=== PATIENT | female | born 1955 | race Caucasian/White ===

== ENCOUNTER 2022-11-30 08:04 | Outpatient (OUT) | payer MEDICARE, SELFPAY ==
--- NOTE | 2022-11-30 07:54 | CA_ITS ---
Patient: FOSTER MCNEILL Exam Date: 11/30/2022 : 1955 Gender:F Ordering : SHAIKH Eugenie ADAME . Admission #: [id number] Family : Order #: [id number] CLICK HERE TO VIEW EXAM ECHOCARDIOGRAM REPORT PROCEDURE: CA ECHO DOPPLER COMPLETE INDICATIONS: SIMON, hypertension COMPARISON: None. DESCRIPTION: COMPLETE ECHOCARDIOGRAM Real-time transthoracic echocardiography with 2D, M-mode, spectral and color flow Doppler performed. QUALITY: Technical quality was good. LEFT VENTRICLE: Normal chamber size. Normal left ventricular wall thickness. Normal systolic function. LV EF: Normal left ventricular ejection fraction, (55%). DIASTOLIC: Normal diastolic function. ATRIAL SEPTUM: Visually appears intact. LEFT ATRIUM: Normal chamber size. RIGHT ATRIUM: Mild dilatation. RIGHT VENTRICLE: Normal chamber size. Normal right ventricular systolic function. TRICUSPID VALVE: Normal mobility and thickness. No stenosis with mild regurgitation. Doppler studies reveal mildly (35-45) elevated right sided pressures. RVSP 39 mmHg MITRAL VALVE: Normal mobility and thickness. No evidence of mitral valve stenosis. Mild mitral annular calcification. No mitral regurgitation. AORTIC VALVE: Normal trileaflet appearance. No visible sclerosis. Normal leaflet mobility. No evidence of aortic valve stenosis. Mild aortic regurgitation. AORTIC ROOT: The aortic root is mildly to moderately dilated, measuring 4.0 cm. Ascending aorta is normal in size (3.5 cm). PULMONIC VALVE: Normal thickness and mobility. No stenosis. Trivial regurgitation. PERICARDIUM: No evidence of pericardial effusion. IVC: Collapses with inspirations. IVC is mildly dilated (2.2 cm). PLEURA: CONCLUSION: 1. Normal ventricular systolic function. LVEF is 55%. 2. Normal diastolic function. 3. Mild tricuspid and aortic regurgitation. 4. Mildly to moderately dilated aortic root [4.0 cm], the ascending aorta is normal in size. 5. Mildly elevated right-sided pressures. Adult Echocardiography Procedure Report Left Ventricle LVEDD (3.7 - 5.6 cm): 5.06 cm LVESD (2.2 - 4.0 cm): 3.19 cm LVIVS thickness (0.6 - 1.2 cm): 0.91 cm LVPW thickness (0.5 - 1.0 cm): 0.86 cm e': 0.12 m/s E - e': 4.83 LVOT Max Gradient: 4.03 mm[Hg] LVOT Area (cm2): 1.00 m/s Peak Velocity (LVOT): 1.00 m/s LVOT Diameter 2.29 cm Left Atrium LA Volume Index (2D A2C): 24.40 ml/m2 Left Atrium Systolic Dimension: 3.46 cm Mitral Valve MV E to A Ratio: 0.65 Mitral Valve A-Wave Peak Velocity: 0.91 m/s Mitral Valve E-Wave Peak Velocity: 0.60 m/s Right Ventricle Aorta AO Root Diam: 4.04 cm Ascending Ao Diam: 3.47 cm Aortic Valve AoV Area (Peak Elan): 3.13 cm2, 3.13 cm2 Peak Velocity(Antegrade Flow): 1.32 m/s Peak Gradient(Antegrade Flow): 6.99 mm[Hg] Tricuspid Valve Peak Velocity (Regurgitant Flow): 2.80 m/s, 2.30 m/s Pulmonic Valve Peak Velocity: 0.99 m/s Peak Gradient: 4.27 mm[Hg], 3.51 mm[Hg] Right Atrium Right Atrium Systolic Pressure: 52.30 ml, 52.30 ml Dictated by: Rad Mock M.D. on 12/05/2022 at 10:46 Approved by: Rad Mock M.D. on 12/05/2022 at 10:52
== END 2022-11-30 08:05 ==
LOC: CARD 08:05
PROVIDERS: PCP Internal Medicine; Visit Provider Internal Medicine
DX: R06.09 Other forms of dyspnea (principal); I08.2 Rheumatic disorders of both aortic and tricuspid valves
CPT/HCPCS: 93306

== ENCOUNTER 2022-12-08 09:37 | Outpatient (OUT) | payer MEDICARE, SELFPAY ==
[2022-12-08 13:04] LABS: Anion Gap 15.3; BUN Creatinine Ratio 18.9; Calcium 9.1 mg/dL (8.5-10.1); Carbon Dioxide 25.5 mmol/L (21.0-32.0); Chloride 104 mmol/L (98-107); Estimated GFR (African America >60 (>=60); Estimated GFR (Non-African Ame >60 (>=60); Glucose 99 mg/dL (74-106); Potassium 3.8 mmol/L (3.5-5.1); Sodium 141 mmol/L (136-145)
== END 2022-12-08 09:38 ==
LOC: LAB 09:37
PROVIDERS: PCP Internal Medicine; Visit Provider Internal Medicine
DX: R06.09 Other forms of dyspnea (principal)
CPT/HCPCS: 36415; 80048

== ENCOUNTER 2023-10-03 07:13 | Outpatient (OUT) | payer OTHER, SELFPAY ==
[2023-10-03 07:42] LABS: Basophils Absolute Auto 0.1 10^3/uL (0.0-0.1); Basophils Percent Auto 1.1 % (0.2-2.0); Eosinophils Absolute Auto 0.2 10^3/uL (0.0-0.7); Eosinophils Percent Auto 2.4 % (0.9-7.0); Hematocrit 41.5 % (36.0-48.0); Hemoglobin 12.7 g/dL (12.0-16.0); Immature Granulocytes Abs Auto 0.01 10^3/uL (0.00-0.03); Immature Granulocytes Pct Auto 0.2 % (0.0-0.5); Lymphocytes Absolute Auto 2.1 10^3/uL (1.2-3.8); Lymphocytes Percent Auto 33.1 % (20.5-60.0); Mean Corpuscular HGB Conc 30.6 g/dL (29.9-35.2); Mean Corpuscular Hemoglobin 26.3 pg (26.7-34.0); Mean Corpuscular Volume 86.1 fL (81.0-99.0); Mean Platelet Volume 9.8 fL (9.5-13.5); Monocytes Absolute Auto 0.6 10^3/uL (0.3-0.8); Monocytes Percent Auto 10.2 % (1.7-12.0); Neutrophils Absolute Auto 3.3 10^3/uL (1.4-6.5); Platelet Count 231 10^3/uL (150-450); Red Blood Count 4.82 10^6/uL (4.20-5.40); Red Cell Distribution Width 16.1 % (11.0-15.0); White Blood Count 6.2 10^3/uL (4.0-11.0)
[2023-10-03 10:31] LABS: Alanine Aminotransferase 37 U/L (14-59); Albumin Globulin Ratio 1.1; Albumin Level 3.4 g/dL (3.4-5.0); Alkaline Phosphatase 80 U/L (46-116); Anion Gap 14.9; Aspartate Amino Transferase 19 U/L (15-37); Bilirubin Total 0.5 mg/dL (0.2-1.0); Calcium 8.9 mg/dL (8.5-10.1); Carbon Dioxide 26.9 mmol/L (21.0-32.0); Chloride 104 mmol/L (98-107); Chol HDL Ratio 3.8; Cholesterol 171 mg/dL (<=200); Estimated GFR (African America >60 (>=60); Estimated GFR (Non-African Ame >60 (>=60); Globulin 3.2 g/dL; Glucose 91 mg/dL (74-106); HDL Cholesterol 45 mg/dL (40-60); Potassium 3.8 mmol/L (3.5-5.1); Sodium 142 mmol/L (136-145); Total Protein 6.6 g/dL (6.4-8.2); Triglycerides 90 mg/dL (<=150)
[2023-10-03 11:03] LABS: Estimated Average Glucose 120 mg/dL; Glycohemoglobin A1C 5.8 % (4.5-6.2)
== END 2023-10-03 07:14 | disposition home or self-care (01) ==
LOC: LAB 07:13
PROVIDERS: PCP Internal Medicine; Visit Provider Internal Medicine
DX: B02.29 Other postherpetic nervous system involvement (principal); I10 Essential (primary) hypertension; Z13.1 Encounter for screening for diabetes mellitus; Z13.220 Encounter for screening for lipoid disorders
CPT/HCPCS: 36415; 80053; 80061; 83036; 85025

== ENCOUNTER 2023-11-11 11:03 | Outpatient (OUT) | payer OTHER, SELFPAY ==
--- NOTE | 2023-11-11 11:59 | P.CN_ITS ---
Consult Note: HPI Data of Consult Patient: new to practice Consult date: 11/11/23 Requesting Physician: Felix Barros MD Primary Care Provider: Shaikh Graham MD Consult Narrative Reason for consult: radiating midback pain Narrative: 68yof who presents for evaluation. developed shingles several months ago across midback and abdomen and has had significant burning pain since. has tried various medications, including opioids, tylenol, gabapentin, lidocaine patches, all without benefit. denies adverse med side effects. cc:: CC: Felix Barros MD Review of Systems ROS Status of ROS 10 or more systems reviewed and unremark able except as noted in history and below Meds Home Medications and Allergies Home Medications ?Medication ?Instructions ?Recorded ?Confirmed ?Type pregabalin 50 mg capsule (Lyrica) 50 mg PO TID #90 caps 11/11/23 Rx Allergies Allergy/AdvReac Type Severity Reaction Status Date / Time valdecoxib [From Bextra] Allergy Verified 11/11/23 11:45 Exam Narrative Exam Narrative: Psych-alert and oriented x 3. Attentive and appropriate, constitutionally normal, displays normal mood and affect per situation.? There are no obvious deficits in memory, reasoning, or intellect.? Skin-no obvious rashes, bruising, erythema noted to the patient's area of pain. Extremities- extremities are warm with minimal edema and palpable pulses. Thoracic - no significant tenderness to palpation. Multiple scarred lesions seen throughout midback pain and abdomen. Coordination remains intact.? Gait remains non-antalgic. Assessment and Plan Assessment and Plan (1) Postherpetic neuralgia: Plan 68yof who presents for evaluation. worsening midthoracic pain from postherpetic neuralgia, roughly around T8 and T9 level. Given that she has failed other conservative measures, prudent to attempt bilateral t8-9 tfesi under fluoroscop ic guidance. may even benefit from bilateral t9-10 tfesi under fluoroscopic guidance. she is in agreement. meds reviewed. pdmp reviewed. will trial lyrica 50mg tid. follow up after procedure.
== END 2023-11-11 11:04 | disposition home or self-care (01) ==
PROVIDERS: PCP Internal Medicine; Visit Provider Anesthesiology
DX: B02.29 Other postherpetic nervous system involvement (principal)
CPT/HCPCS: G0463

== ENCOUNTER 2023-12-09 09:48 | Day surgery (SDC) | payer OTHER, SELFPAY ==
[2023-12-09 10:28] VITALS: BP 125/88; PULSE 79; TEMP 36.9; O2SAT 99
[2023-12-09] MEDS: 0.9 % SODIUM CHLORIDE 10 ML SYRINGE - SALINE FLUSH INJ (10:58)
[2023-12-09] MEDS: DEXAMETHASONE SOD PHOS 10 MG/ML VIAL INJ (10:58)
[2023-12-09] MEDS: BUPIVACAINE HCL 0.25% PF 25 MG/10 ML VIAL INJ (10:58)
[2023-12-09] MEDS: IOHEXOL 240 MG/ML - 10 ML VIAL 24 MG INJ (10:59)
[2023-12-09] MEDS: LIDOCAINE HCL 2% PF 100 MG/5 ML VIAL 2 ML INJ (10:59)
[2023-12-09 11:00] VITALS: BP 150/83; BP 156/89; PULSE 70; PULSE 71; O2SAT 95
--- NOTE | 2023-12-09 11:00 | W.PM.PROCNOT ---
Date of procedure: 12/09/23 Pre-op diagnosis: Pain due to thoracic radiculopathy, postherpetic neuralgia Post-op diagnosis: same as pre-op Procedure: Procedure: Bilateral T8-9 transforaminal epidural steroid injection Medications: Bupivacaine 0.25% 2cc, lidocaine 2% 1cc, dexamethasone 10mg The patient was seen and examined in the preoperative holding area.? Informed consent was obtained and placed on the chart.? Patient was brought to the medical procedure unit and placed in the prone position where a timeout was completed verifying the correct patient, procedure site, position, and planned special equipment using sterile aseptic technique.? Under direct fluoroscopic visualization a 25-gauge Quincke tipped spinal needle was advanced at level left T8-9 to the designated neural foramen where contrast dye was injected to show adequate spread.? There was no evidence of vascular or adverse uptake.? Epidural spread was appreciated.? The above-mentioned injectate was then placed in a 1.5 mL aliquot preceded by negative aspiration.? The needle was removed. The same procedure, at the same level, was completed on the opposite side. ? Patient was taken to the postprocedural recovery area and monitored for an appropriate length of time before found suitable for discharge in the accompaniment of a responsible adult. Anesthesia: Local Surgeon: Felix Barros Pathology: none sent Condition: stable Disposition: no change
== END 2023-12-09 11:06 | disposition home or self-care (01) ==
PROVIDERS: PCP Internal Medicine; Visit Provider Anesthesiology
DX: M54.14 Radiculopathy, thoracic region (principal); B02.29 Other postherpetic nervous system involvement
CPT/HCPCS: 64479; J1100; Q9966

== ENCOUNTER 2023-12-23 09:12 | Day surgery (SDC) | payer OTHER, SELFPAY ==
--- OUTSIDE RECORDS SUMMARY | 2023-12-23 09:16 | XMS_ITS | CCD ---
Author Organization [facility] ion Partnership [facility] Care Team Providers Care Burglar Alarm Inspector Name Role Phone DR RICARDO ABBOTT Primary Care Unavailable PAY ., DR TOLENTINO Admitting Unavailable PAY ., DR TOLENTINO Attending Unavailable ELENA, DR MIRANDA Forrest Consulting Unavailable PAY ., DR TOLENTINO Consulting Unavailable ESTELLE CHU Consulting Unavailable SHAIKH ADAME Attending Unavailable SHAIKH ADAME Attending Unavailable Papo JUNG, Felix Moran Attending Unavailable Papo JUNG, Felix Moran Attending Unavailable Allergies Allergy Classification Reported Allergen(s) Allergy Type Date of Onset Reaction(s) Facility (1 source) valdecoxib Drug Allergy [facility] Repository Problems Problem Classification Problem Date Documented Da te Episodic/Chronic Other lower respiratory disease (4 sources) Other forms of dyspnea; Translations: [OTHER FORMS OF DYSPNEA] Onset: 11-09-2022 Episodic Other lower respiratory disease (1 source) Solitary pulmonary nodule; Translations: [SOLITARY PULMONARY NODULE] Onset: 11-12-2022 Episodic Other screening for suspected conditions (not mental disorders or infectious disease) (2 sources) Other specified abnormal findings of blood chemistry; Translations: [Abnormal results of thyroid function studies] Onset: 11-12-2022 Episodic Residual codes; unclassified (1 source) Localized edema; Translations: [LOCALIZED EDEMA] Onset: 11-12-2022 Episodic Screening and history of mental health and substance abuse codes (1 source) Personal history of nicotine dependence; Translations: [PERSONAL HISTORY OF NICOTINE DEPEND] Onset: 11-12-2022 Episodic Unclassified (1 source) PT NONCOMP OTH MED TX/REG UNS REASN; Translations: [PT NONCOMP OTH MED TX/REG UNS REASN] Onset: 11-12-2022 Results Test Name Value Interpretation Reference Range Facil ity BNPon 11-09-2022 Natriuretic peptide B (Bld) [Mass/Vol] 1608.0 pg/mL Critically high <=900.0 [facility] Comment on above: Performed By: #### C MP, HSTROPN, CK, BNP, TSH #### [facility] [address] [place] [address] Dr. Jeremy Sainz CBC AUTO DIFFon 11-09-2022 BASO # 0.1 103/ul Normal 0.0-0.1 [facility] Comment on above: Performed By: #### C BC #### [facility] [address] [place] [address] Dr. Jeremy Sainz Basophils/100 WBC (Bld) 0.7 % Normal 0.2-2.0 [facility] Comment on above: Performed By: #### C BC #### [facility] [address] [place] [address] Dr. Jeremy Sainz EO # 0.1 103/ul Normal 0.0-0.7 [facility] Comment on above: Performed By: #### C BC #### [facility] [address] [place] [address] Dr. Jeremy Sainz Eosinophils/100 WBC (Bld) 0.7 % Critically low 0.9-7.0 [facility] Comment on above: Performed By: #### C BC #### [facility] [address] [place] [address] Dr. Jeremy Sainz Erythrocyte distribution width (RBC) [Ratio] 15.9 % Critically high 11.0-15.0 [facility] Comment on above: Performed By: #### C BC #### [facility] [address] [place] [address] Dr. Jeremy Sainz Hematocrit (Bld) [Volume fraction] 40.3 % Normal 36.0-48.0 [facility] Comment on above: Performed By: #### C BC #### [facility] [address] [place] [address] Dr. Jeremy Sainz Hemoglobin (Bld) [Mass/Vol] 12.8 g/dL Normal 12.0-16.0 [facility] Comment on above: Performed By: #### C BC #### [facility] [address] [place] [address] Dr. Jeremy Sainz IG # 0.02 10e3/ul Normal 0.00-0.03 [facility] Comment on above: Performed By: #### C BC #### [facility] [address] [place] [address] Dr. Jeremy Sainz IG % 0.3 % Normal 0.0-0.5 [facility] Comment on above: Performed By: #### C BC #### [facility] [address] [place] [address] Dr. Jeremy Sainz LYMPH # 1.6 103/ul Normal 1.2-3.8 [facility] Comment on above: Performed By: #### C BC #### [facility] [address] [place] [address] Dr. Jeremy Sainz Lymphocytes/100 WBC (Bld) 21.6 % Normal 20.5-60.0 [facility] Comment on above: Performed By: #### C BC #### [facility] [address] [place] [address] Dr. Jeremy Sainz MANUAL DIFF REQ NO Normal [facility] Comment on above: Performed By: #### C BC #### [facility] [address] [place] [address] Dr. Jeremy Sainz MCH (RBC) [Entitic mass] 25.7 pg Critically low 26.7-34.0 [facility] Comment on above: Performed By: #### C BC #### [facility] [address] [place] [address] Dr. Jeremy Sainz MCHC (RBC) [Mass/Vol] 31.8 g/dL Normal 29.9-35.2 [facility] Comment on above: Performed By: #### C BC #### [facility] [address] [place] [address] Dr. Jeremy Sainz MCV (RBC) [Entitic vol] 80.9 fL Critically low 81.0-99.0 [facility] Comment on above: Performed By: #### C BC #### [facility] [address] [place] [address] Dr. Jeremy Sainz MONO # 0.4 103/ul Normal 0.3-0.8 [facility] Comment on above: Performed By: #### C BC #### [facility] [address] [place] [address] Dr. Jeremy Sainz Monocytes/100 WBC (Bld) 5.3 % Normal 1.7-12.0 [facility] Comment on above: Performed By: #### C BC #### [facility] [address] [place] [address] Dr. Jeremy Sainz NEUT # 5.4 103/ul Normal 1.4-6.5 [facility] Comment on above: Performed By: #### C BC #### [facility] [address] [place] [address] Dr. Jeremy Sainz Neutrophils/100 WBC (Bld) 71.4 % Normal 43.0-75.0 [facility] Comment on above: Performed By: #### C BC #### [facility] [address] [place] [address] Dr. Jeremy Sainz Platelet mean volume (Bld) [Entitic vol] 10.5 fL Normal 9.5-13.5 [facility] Comment on above: Performed By: #### C BC #### [facility] [address] [place] [address] Dr. Jeremy Sainz PLT 279 103/ul Normal 150-450 [facility] Comment on above: Performed By: #### C BC #### [facility] [address] [place] [address] Dr. Jeremy Sainz RBC 4.98 106/ul Normal 4.20-5.40 [facility] Comment on above: Performed By: #### C BC #### [facility] [address] [place] [address] Dr. Jeremy Sainz WBC 7.5 103/ul Normal 4.0-11.0 [facility] Comment on above: Performed By: #### C BC #### [facility] [address] [place] [address] Dr. Jeremy Sainz CPKon 11-09-2022 CK [Catalytic activity/Vol] 103 U/L Normal 26-192 [facility] Comment on above: Performed By: #### C MP, HSTROPN, CK, BNP, TSH #### [facility] [address], [place] [address] Dr. Jeremy Sainz CTA CHEST WO W CONon 023 CTA CHEST WO W CON EXAMINATION: CTA CHEST WO W CON HISTORY: SHORTNESS OF BREATH , elevated d-dimer COMPARISON: CTA chest 12/29/2020 TECHNIQUE: Multi-planar CT images were created with IV contrast. Axial, Coronal, and Sagittal images. Dose reduction techniques were achieved by using automated exposure control and/or adjustment of mA and/or kV according to patient size and/or use of iterative reconstruction technique. 3-D reconstruction was performed on a separate workstation. FINDINGS: VASCULATURE: No pulmonary embolism or abnormal opacity. LUNGS: Stable 5 mm nodule within right lower lobe at level of hilum. No acute infiltrates. PLEURA: No mass, effusion, or pneumothorax. JEIMY: No mass or adenopathy. MEDIASTINUM: No mass or adenopathy. CARDIAC: No enlargement, pericardial effusion, or pericardial thickening. AORTA: No aneurysm or dissection. CHEST WALL: No mass or axillary adenopathy. BONES: No bone lesion or fracture. LIMITED ABDOMEN: No suspicious findings. Limited images of the upper abdomen. OTHER: Negative. IMPRESSION: 1. No pulmonary embolism. 2. No acute infiltrates or significant chronic interstitial changes. 3. Stable small right lower lobe nodule; not overtly suspicious. Electronically authenticated by: MIRANDA PARKER Date: 2022-11-09 10:04 Normal [facility] D-DIMERon 11-09-2022 D-DIMER 0.64 mg/L FEU Critically high <=0.59 [facility] Comment on above: Performed By: #### D DIM ####[facility] [id number] [place], [place] [address]DuDr. Jeremy Sainz D-DIMER COMMENTS SEE BELOW Normal [facility] Comment on above: Result Comment: Incr eases in D-Dimer concentration observed with thromboembolic events can be variable due to localization, size, and age of the thrombus. Therefore, a thromboembolic event cannot be diagnosed with certainty on the basis of the reference range. D-Dimers may also be elevated for a variety of disorders including: advanced age, , coronary disease, cancer, liver disease, infection, inflammation, hematoma, DIC, trauma, post-surgery, diabetes, thrombolytic or anticoagulant therapy, stress, and generalized hospitalization. Performed By: #### D DIM ####[facility] [id number] [place] [address]Dr. Jeremy FLORES URINE PROFILEon 3 Bilirubin Ql (U) Negative Normal NEGATIVE [facility] Comment on above: Performed By: #### Trini MORGAN UMICRO #### [facility] [address] [place] [address] Dr. Jeremy Sainz Clarity (U) CLEAR Normal CLEAR [facility] Comment on above: Performed By: #### Trini MORGAN UMICRO #### [facility] [address] [place] [address] Dr. Jeremy Sainz Color (U) YELLOW Normal YELLOW [facility] Comment on above: Performed By: #### ADRIANNA PINEDAICRO #### [facility] [address] [place] [address] Dr. Jeremy PENA A micrscopic examination will be performed if indicated. Normal [facility] Comment on above: Performed By: #### ADRIANNA PINEDAICRO #### [facility] [address] [place] [address] Dr. Jeremy Sainz Glucose Ql (U) Negative Normal NEGATIVE [facility] Comment on above: Performed By: #### Trini MORGAN UMICRO #### [facility] [address] [place] [address] Dr. Jeremy Sainz Hemoglobin Ql (U) MODERATE Abnormal NEGATIVE [facility] Comment on above: Performed By: #### Trini MORGAN UMICRO #### [facility] [address] [place] [address] Dr. Jeremy Sainz Ketones Ql (U) Negative Normal NEGATIVE [facility] Comment on above: Performed By: #### Trini MORGAN UMICRO #### [facility] [address] [place] [address] Dr. Jeremy Sainz LEUKOCYTES TRACE Abnormal NEGATIVE [facility] Comment on above: Performed By: #### Trini MORGAN, UMICRO #### [facility] [address] [place] [address] [address] Jeremy Sainz Nitrite Ql (U) Negative Normal NEGATIVE [facility] Comment on above: Performed By: #### Trini MORGAN, UMICRO #### [facility] [address] [place] [address] [address] Jeremy Sainz pH (U) 7.5 [pH] Normal 5-9 [facility] Comment on above: Performed By: #### Trini MORGAN, UMICRO #### [facility] [address] [place] [address] Dr. Jeremy Sainz SPEC GRAVITY 1.020 Normal 1.005-<=1.025 [facility] Comment on above: Performed By: #### Trini MORGAN, UMICRO #### [facility] [address] [place] [address] Dr. Jeremy Sainz UA PROTEIN Negative Normal NEGATIVE/ TRACE [facility] Comment on above: Performed By: #### Trini MORGAN, UMICRO #### [facility] [address] [place] [address] Dr. Jeremy Sainz UR MICRO IND INDICATED Normal [facility] Comment on above: Performed By: #### Trini MORGAN, UMICRO #### [facility] [address] [place] [address] Dr. Jeremy Sainz Urobilinogen Qn (U) 1.0 {Edison'U}/dL Normal 0.2 - 1. 0 [facility] Comment on above: Performed By: #### Trini MORGAN, UMICRO #### [facility] [address] [place] [address] Dr. Jeremy Sainz PROF 14(COMP METB)on 023 Albumin [Mass/Vol] 3.6 g/dL Normal 3.4-5.0 [facility] Comment on above: Performed By: #### C MP, HSTROPN, CK, BNP, TSH #### [facility] [address] [place] [address] Dr. Jeremy Sainz Albumin/Globulin [Mass ratio] 1.0 {ratio} Normal [facility] Comment on above: Performed By: #### C MP, HSTROPN, CK, BNP, TSH #### [facility] [address] [place] [address] Dr. Jeremy Sainz ALP [Catalytic activity/Vol] 88 U/L Normal 46-116 [facility] Comment on above: Performed By: #### C MP, HSTROPN, CK, BNP, TSH #### [facility] [address] [place] [address] Dr. Jeremy Sainz ALT [Catalytic activity/Vol] 38 U/L Normal 14-59 [facility] Comment on above: Performed By: #### C MP, HSTROPN, CK, BNP, TSH #### [facility] [address] [place] [address] Dr. Jeremy Sainz Anion gap [Moles/Vol] 15.1 mmol/L Normal [facility] Comment on above: Performed By: #### C MP, HSTROPN, CK, BNP, TSH #### [facility] [address] [place] [address] Dr. Jeremy Sainz AST [Catalytic activity/Vol] 23 U/L Normal 15-37 [facility] Comment on above: Performed By: #### C MP, HSTROPN, CK, BNP, TSH #### [facility] [address] [place] [address] Dr. Jeremy Sainz Bilirubin [Mass/Vol] 0.4 mg/dL Normal 0.2-1.0 [facility] Comment on above: Performed By: #### C MP, HSTROPN, CK, BNP, TSH #### [facility] [address] [place] [address] Dr. Jeremy Sainz Calcium [Mass/Vol] 8.8 mg/dL Normal 8.5-10.1 [facility] Comment on above: Performed By: #### C MP, HSTROPN, CK, BNP, TSH #### [facility] [address] [place] [address] Dr. Jeremy Sainz Chloride [Moles/Vol] 108 mmol/L Critically high 98-107 [facility] Comment on above: Performed By: #### C MP, HSTROPN, CK, BNP, TSH #### [facility] [address] [place] [address] [address] Jeremy Sainz CO2 [Moles/Vol] 26.6 mmol/L Normal 21.0-32.0 [facility] Comment on above: Performed By: #### C MP, HSTROPN, CK, BNP, TSH #### [facility] [address] [place] [address] [address] Jeremy Sainz Creatinine [Mass/Vol] 0.97 mg/dL Normal 0.55-1.02 [facility] Comment on above: Performed By: #### C MP, HSTROPN, CK, BNP, TSH #### [facility] [address] [place] [address] [address] Jeremy Sainz EGFR-AF CANADIAN >60 Normal >=60 [facility] Comment on above: Performed By: #### C MP, HSTROPN, CK, BNP, TSH #### [facility] [address] [place] [address] [address] Jeremy Sainz EGFR-NON AF CANADIAN 57 mL/min/1.73m2 Critically low >=60 [facility] Comment on above: Performed By: #### C MP, HSTROPN, CK, BNP, TSH #### [facility] [address] [place] [address] [address] Jeremy Sainz Globulin (S) [Mass/Vol] 3.6 g/dL Normal [facility] Comment on above: Performed By: #### C MP, HSTROPN, CK, BNP, TSH #### [facility] [address] [place] [address] [address] Jeremy Sainz Glucose [Mass/Vol] 117 mg/dL Critically high 74-106 T [facility] Comment on above: Performed By: #### C MP, HSTROPN, CK, BNP, TSH #### [facility] [address] [place] [address] [address] Jeremy Sainz Potassium [Moles/Vol] 3.7 mmol/L Normal 3.5-5.1 [facility] Comment on above: Performed By: #### C MP, HSTROPN, CK, BNP, TSH #### [facility] [address] [place] [address] [address] Jeremy Sainz Protein [Mass/Vol] 7.2 g/dL Normal 6.4-8.2 [facility] Comment on above: Performed By: #### C MP, HSTROPN, CK, BNP, TSH #### [facility] [address] [place] [address] Dr. Jeremy Sainz Sodium [Moles/Vol] 146 mmol/L Critically high 136-145 T [facility] Comment on above: Performed By: #### C MP, HSTROPN, CK, BNP, TSH #### [facility] [address] [place] [address] Dr. Jeremy Sainz Urea nitrogen [Mass/Vol] 11.0 mg/dL Normal 7.0-18.0 [facility] Comment on above: Performed By: #### C MP, HSTROPN, CK, BNP, TSH #### [facility] [address] [place] [address] Dr. Jeremy Sainz Urea nitrogen/Creatinine [Mass ratio] 11.3 mg/mg Normal [facility] Comment on above: Performed By: #### C MP, HSTROPN, CK, BNP, TSH #### [facility] [address] [place] [address] Dr. Jeremy Sainz TROPONIN, HIGH SENSITIVITYon 11-09-2022 HSTROP 11.6 pg/mL Normal 4.0-51.3 [facility] Comment on above: Result Comment: CUT- OFF POINTS HAVE BEEN ESTABLISHED BASED ON THE FOURTH UNIVERSAL DEFINITIONS OF MYOCARDIAL INFARCTION. THE UPPER REFERENCE LIMIT (URL) OF TROPONIN, DEFINED THE 99TH PERCENTILE OF cTnI DISTRIBUTION IN A REFERENCE POPULATION, HAS BEEN CONFIRMED THE DECISION THRESHOLD FOR OK DIAGNOSIS. Performed By: #### C MP, HSTROPN, CK, BNP, TSH #### [facility] [address] [place] [address] Dr. Jeremy Sainz TSHon 11-09-2022 TSH 3.659 uIU/mL Normal 0.358-3.740 [facility] Comment on above: Performed By: #### C MP, HSTROPN, CK, BNP, TSH #### [facility] [address] [place] [address] Dr. Jeremy Sainz URINE MICROSCOPIC ONLYon BACTERIA TRACE Abnormal NONE SEEN [facility] Comment on above: Performed By: #### Trini MORGAN UMICRO #### [facility] [address] [place] [address] Dr. Jeremy Sainz Bacteria identified Cx Nom (U) NOT INDICATED Normal [facility] Comment on above: Performed By: #### Trini MORGAN UMICRO #### [facility] [address] [place] [address] Dr. Jeremy Sainz CAST NONE SEEN Normal NONE SEEN [facility] Comment on above: Performed By: #### Trini MORGAN UMICRO #### [facility] [address] [place] [address] Dr. Jeremy Sainz Crystals LM Nom (Urine sed) NONE SEEN Normal NONE SEEN [facility] Comment on above: Performed By: #### Trini MORGAN UMICRO #### [facility] [address] [place] [address] Dr. Jeremy Sainz Epithelial cells LM Ql (Urine sed) FEW Abnormal NONE SEEN /RARE [facility] Comment on above: Performed By: #### Trini MORGAN UMICRO #### [facility] [address] [place] [address] Dr. Jeremy Sainz MUCOUS TRACE Abnormal NONE SEEN [facility] Comment on above: Performed By: #### Trini MORGAN UMICRO #### [facility] [address] [place] [address] Dr. Jeremy Sainz RBC 5-10 Abnormal 0-2 [facility] Comment on above: Performed By: #### Trini MORGAN UMICRO #### [facility] [address] [place] [address] Dr. Jeremy Sainz WBC 2-5 Abnormal NONE SEEN [facility] Comment on above: Performed By: #### E SKYLAR MORGAN #### [facility] [address] [place] [address] [address] Jeremy Sainz XR CHEST 2 Von 11-09-2022 XR CHEST 2 V EXAM: XR CHEST 2 V HISTORY: Shortness of breath for 3 days with sinus drainage. COMPARISON: 12/29/2020. TECHNIQUE: PA and lateral views of the chest performed. FINDINGS: Stable mild convexity of the trachea to the right secondary to the aortic arch. The cardiac silhouette is normal size and stable. There is a stable mild tortuous course of the descending thoracic aorta. There is stable epicardial fat at the left cardiac angle. The lung connolly are clear. There is no pneumothorax. The bony structures appear osteopenic. There are endplate spurs at several levels along the spine. IMPRESSION: There is no acute cardiopulmonary process. Electronically authenticated by: ESTELLE CHU Date: 2022-11-09 08:34 Normal [facility] Encounters Encounter Date Encounter Type Care Provider Facility Start: 12-09-2023 End: 12-09-2023 ambulatory Felix Barros MD Facility: [facility] Start: 11-11-2023 End: 11-11-2023 ambulatory Felix Barros MD Facility: [facility] Start: 11-04-2023 End: 11-04-2023 ambulatory SHAIKH WENDI Not Available Start: 10-01-2023 End: 10-01-2023 ambulatory SHAIKH WENDI Not Available Start: 11-09-2022 End: 11-09-[address] RICARDO ABBOTT Facility: Payers Date Payer Category Payer Unknown [id number] 2023 Medicare 1959 Medicare [id number] 1955 Unknown [id number] 2.16.84 [id number] 1955 Unknown [id number] 2.16.84 [id number] 1955 Unknown [id number] [id number] [id number] 1955 Unknown [id number] [id number] 1955 Unknown [id number] Summary Purpose Family History No Family History Records FoundNo Family History Records FoundNo Family History Records Found Advance Directives No Advanced Directives Records FoundNo Advanced Directives Records FoundNo Advanced Directives Records Found Additional Source Comments INFORMATION SOURCE (unrecogn ized section and content) DATE CREATED AUTHOR 11/12/2022 [facility] DATE CREATED AUTHOR AUTHOR'S ORGANIZ ATION 11/05/2023 [facility] dical [facility] DATE CREATED AUTHOR AUTHOR'S ORGANIZ ATION 12/22/2023 [facility] FOR RECORDS PERTAINING TO PATIENTS WHO ARE OR HAVE BEEN ENROLLED IN A CHEMICAL DEPENDENCY/SUBSTANCEABUSE PROGRAM, SOME INFORMATION MAY BE OMITTED. This clinical summary was aggregated from multiple sources. Caution should be exercised in using it in the provision of clinical care. This summary normalizes information from multiple sources, and as a consequence, information in this document may materially change the coding, format and clinical context of patient data. In addition, data may be omitted in some cases. CLINICAL DECISIONS SHOULD BE BASED ON THE PRIMARY CLINICAL RECORDS. [facility] [employer] [facility]. provides no warranty or guarantee of the accuracy or completeness of information in this document.
[2023-12-23 09:53] VITALS: BP 140/88; PULSE 83; TEMP 36.4; O2SAT 97
[2023-12-23] MEDS: 0.9 % SODIUM CHLORIDE 10 ML SYRINGE - SALINE FLUSH INJ (10:45)
[2023-12-23] MEDS: DEXAMETHASONE SOD PHOS 10 MG/ML VIAL INJ (10:46)
[2023-12-23] MEDS: BUPIVACAINE HCL 0.25% PF 25 MG/10 ML VIAL INJ (10:46)
[2023-12-23] MEDS: IOHEXOL 240 MG/ML - 10 ML VIAL INJ (10:46)
[2023-12-23] MEDS: LIDOCAINE HCL 2% PF 100 MG/5 ML VIAL INJ (10:49)
[2023-12-23 10:50] VITALS: BP 139/67; BP 148/77; PULSE 66; PULSE 71; O2SAT 95; O2SAT 96
--- NOTE | 2023-12-23 10:50 | W.PM.PROCNOT ---
Date of procedure: 12/23/23 Pre-op diagnosis: Postherpetic neuralgia Post-op diagnosis: same as pre-op Procedure: Procedure: Bilateral T9-10 transforaminal epidural steroid injection Medications: Bupivacaine 0.25% 2cc, lidocaine 2% 1cc, dexamethasone 10mg The patient was seen and examined in the preoperative holding area.? Informed consent was obtained and placed on the chart.? Patient was brought to the medical procedure unit and placed in the prone position where a timeout was completed verifying the correct patient, procedure site, position, and planned special equipment using sterile aseptic technique.? Under direct fluoroscopic visualization a 25-gauge Quincke tipped spinal needle was advanced at level left T9-10 to the designated neural foramen where contrast dye was injected to show adequate spread.? There was no evidence of vascular or adverse uptake.? Epidural spread was appreciated.? The above-mentioned injectate was then placed in a 1.5 mL aliquot preceded by negative aspiration.? The needle was removed. The same procedure, at the same level, was completed on the opposite side. ? Patient was taken to the postprocedural recovery area and monitored for an appropriate length of time before found suitable for discharge in the accompaniment of a responsible adult. Anesthesia: Local Surgeon: Felix Barros Pathology: none sent Condition: stable Disposition: no change
== END 2023-12-23 10:54 | disposition home or self-care (01) ==
LOC: SURGOUT 09:12
PROVIDERS: PCP Internal Medicine; Visit Provider Anesthesiology
DX: B02.29 Other postherpetic nervous system involvement (principal)
CPT/HCPCS: 64479; J0665; J1100; Q9966

== ENCOUNTER 2024-01-08 08:36 | Outpatient (OUT) | payer OTHER, SELFPAY ==
--- NOTE | 2024-01-08 08:56 | P.CN_ITS ---
Consult Note: HPI Data of Consult Patient: new to practice Consult date: 11/11/23 Requesting Physician: Alana Ley NP Primary Care Provider: Shaikh Graham MD Consult Narrative Reason for consult: radiating midback pain Narrative: 68yof who presents for evaluation. developed shingles several months ago across midback and abdomen and has had significant burning pain since. has tried various medications, including opioids, tylenol, gabapentin, lidocaine patches, all without benefit. denies adverse med side effects. reported no benefit from pregabalin 50mg TID, stopped taking. Patient would like to try vitamins/otc supplements. Recent bilateral T8-9 TFESI and bilateral T9-10 TFESI providing 50% improvement on right side, less than 50% improvement on left side. cc:: CC: Alana Ley NP Review of Systems ROS Status of ROS 10 or more systems reviewed and unremark able except as noted in history and below Musculoskeletal Reports: back pain PFSH PFSH Medical History Obesity ?E66.9 - Obesity, unspecified (ICD-10) Former smoker ?Z87.891 - Personal history of nicotine dependence (ICD-10) Surgical History S/P knee surgery ?Z98.890 - Other specified postprocedural states (ICD-10) Hx of tonsillectomy ?Z90.89 - Acquired absence of other organs (ICD-10) History of knee replacement ?Z96.659 - Presence of unspecified artificial knee joint (ICD-10) Meds Home Medications and Allergies Home Medications ?Medication ?Instructions ?Recorded ?Confirmed ?Type lysine 500 mg capsule mg QDAY 12/23/23 History Allergies Allergy/AdvReac Type Severity Reaction Status Date / Time valdecoxib [From Bextra] Allergy Verified 12/23/23 09:57 Exam Narrative Exam Narrative: Psych-alert and oriented x 3. Attentive and appropriate, constitutionally normal, displays normal mood and affect per situation.? There are no obvious deficits in memory, reasoning, or intellect.? Skin-no obvious rashes, bruising, erythema noted to the patient's area of pain. Extremities- extremities are warm with minimal edema and palpable pulses. Thoracic - no significant tenderness to palpation. Multiple scarred lesions seen throughout midback pain and abdomen. Coordination remains intact.? Gait remains non-antalgic. Assessment and Plan Assessment and Plan (1) Postherpetic neuralgia: Plan 68yof who presents for evaluation. worsening midthoracic pain from postherpetic neuralgia, roughly around T8 and T9 level. Given that she has failed other conservative measures, prudent to attempt left t8-9 tfesi under fluoroscopic guidance with steroid rotation. may even benefit from left t9-10 tfesi under fluoroscopic guidance with steroid rotation. declining additional medications or increased dosing of lyirca. follow up after procedure.
== END 2024-01-08 08:37 | disposition home or self-care (01) ==
LOC: PM 08:37
PROVIDERS: PCP Internal Medicine; Visit Provider Nurse Practitioner
DX: B02.29 Other postherpetic nervous system involvement (principal)
CPT/HCPCS: G0463

== ENCOUNTER 2025-02-05 08:05 | Outpatient (OUT) | payer OTHER, SELFPAY ==
[2025-02-05 08:49] LABS: Hematocrit 39.2 % (36.0-48.0); Hemoglobin 12.6 g/dL (12.0-16.0); Immature Granulocytes Abs Auto 0.01 10^3/uL (0.00-0.03); Immature Granulocytes Pct Auto 0.1 % (0.0-0.5); Lymphocytes Absolute Auto 1.7 10^3/uL (1.2-3.8); Mean Corpuscular HGB Conc 32.1 g/dL (29.9-35.2); Mean Corpuscular Hemoglobin 26.1 pg (26.7-34.0); Mean Corpuscular Volume 81.2 fL (81.0-99.0); Platelet Count 263 10^3/uL (150-450); Red Blood Count 4.83 10^6/uL (4.20-5.40); White Blood Count 7.3 10^3/uL (4.0-11.0)
[2025-02-05 09:12] LABS: Glucose Urine UA NEGATIVE (NEGATIVE)
[2025-02-05 09:15] LABS: Alanine Aminotransferase 33 U/L (14-59); Albumin Globulin Ratio 1.1; Albumin Level 3.6 g/dL (3.4-5.0); Alkaline Phosphatase 88 U/L (46-116); Anion Gap 13.9; Aspartate Amino Transferase 20 U/L (15-37); Blood Urea Nitrogen 14.0 mg/dL (7.0-18.0); Calcium 8.8 mg/dL (8.5-10.1); Carbon Dioxide 27.0 mmol/L (21.0-32.0); Chloride 106 mmol/L (98-107); Cholesterol 187 mg/dL (<=200); Estimated GFR (African America >60 (>=60 mL/min/1.73m^2); Estimated GFR (Non-African Ame >60 (>=60 mL/min/1.73m^2); Globulin 3.3 g/dL; Glucose 109 mg/dL (74-106); HDL Cholesterol 42 mg/dL (40-60); Potassium 3.9 mmol/L (3.5-5.1); Sodium 143 mmol/L (136-145); Thyroid Stimulating Hormone 5.247 uIU/mL (0.358-3.740); Total Protein 6.9 g/dL (6.4-8.2); Triglycerides 113 mg/dL (<=150); VLDL CHOLESTEROL 22.6 mg/dL
[2025-02-05 09:19] LABS: Cast Seen? NONE SEEN #/LPF (NONE SEEN); Crystals Seen? None Seen #/HPF (None Seen)
[2025-02-05 09:34] LABS: Microalbum Creatinine Ratio Ur 9.0 mg/g (0.0-29.9)
== END 2025-02-05 08:06 | disposition home or self-care (01) ==
LOC: LAB 08:14
PROVIDERS: PCP Nurse Practitioner; Visit Provider Nurse Practitioner
DX: E03.8 Other specified hypothyroidism (principal); I10 Essential (primary) hypertension; R73.03 Prediabetes; E66.01 Morbid (severe) obesity due to excess calories
CPT/HCPCS: 36415; 80053; 80061; 81001; 82043; 82570; 83036; 84443; 85025

== ENCOUNTER 2025-03-05 12:26 | Outpatient (OUT) | payer OTHER, SELFPAY ==
--- OUTSIDE RECORDS SUMMARY | 2025-03-05 12:29 | XMS_ITS | Clinical Summary ---
Author Organization [facility] Address [address] [place] [address] Care Team Providers Care [place] Attendant Name Role Phone David Swain MD Unavailable Lucille Oviedo NP Unavailable [phone] David Swain MD Primary Care Provider [phone] Allergies Active Allergy Reactions Criticality Noted Date Comments Valdecoxib Anxiety Low 02/04/2025 Medications No known medications Active Problems Problem Noted Date Diagnosed Date Asymptomatic microscopic hematuria 02/05/2025 Pre-diabetes 02/04/2025 Assessment & Plan (02/04/2025 6:10 AM EDT): A1c 5.8% 2023 Body mass index (BMI) 40.0-44.9, adult Breast cancer screening declined 02/04/2025 Neoplasm of uncertain behavior of breast, 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 [place] in color. Raised. black spots in center. Abnormal shape and edges. Pencil eraser in size. Will send referral to dermatology for further evaluation and treatment. Medicare annual wellness visit, subsequent 11/03 Assessment & Plan (02/04/2025 6:10 AM EDT): Reviewed Ht/Wt/BMI Recommend eye exam yearly Recommend dental exams twice a year Balance work/leisure activities Exercises is recommended most days of the week (appropriate as chronic conditions allow) Follow up yearly and prn Assessment & Plan (11/04/2023 2:10 PM EDT): Patient here for Medicare Wellness. Reviewed medical, surgical and social history. Reviewed medication list. Patient screened for depression, fall risk, cognitive impairment. Patient provided appropriate education on chronic medical conditions, prescription medications. Patient's health related questions and concerns addressed and answered. Primary hypertension 10/01/2023 Assessment & Plan (02/04/2025 6:08 AM EDT): Hx of this, no medications Assessment & Plan (08/06/2024 9:15 AM EST): Currently not taking any medication BP in office 130/80. States BP Maximum at home is 140 SBP. States average is less than 130/90. Provided BP log- did not bring with her to visit. Assessment & Plan (02/04/2024 9:53 AM EDT): Currently not taking any medication BP in office 108/84 States BP Maximum at home is 140 SBP Provided BP log-bring back to next visit Assessment & Plan (11/04/2023 2:10 PM EDT): Used to be on BP meds. Not using anything now. BP at goal without treatment. Asked pt to maintain BP log at home. Bring BP log next appt. Monitor and follow up as clinically indicated. Assessment & Plan (10/02/2023 5:16 PM EDT): Used to be on BP meds. Not using anything now. BP at goal without treatment. Asked pt to maintain BP log at home. Bring BP log next appt. Monitor and follow up as clinically indicated. Morbid obesity 10/01/2023 Assessment & Plan (02/04/2025 6:08 AM EDT): Discussed with patient their BMI (actual, verses recommended). We have also discussed lifestyle modifications: attempts to perform physical activity as chronic conditions allow, also to monitor dietary intake: increasing protein/fruits/veggies and lowering carb intake (unless contraindicated). Limit sodas, juices, and sugary drinks. Other specified hypothyroidism 10/01/2023 Assessment & Plan (02/04/2025 6:09 AM EDT): No current medications for this Assessment & Plan (02/04/2024 9:53 AM EDT): Currently not on any medication Last TSH WNL Assessment & Plan (10/02/2023 5:18 PM EDT): Used to be on synthyroid. Not using it anymore. Check TSH/T4 Post herpetic neuralgia 10/01/2023 Assessment & Plan (02/04/2024 9:55 AM EDT): Currently not taking any medications for nerve pain States pain is significantly improving Was following with pain management- had injections X2 Had substantial relief Is no longer following PM. Believes symptoms are well controlled. Assessment & Plan (11/04/2023 2:03 PM EDT): Developed shingles in July. She has post herpetic neuralgia. She reports no improvement in her pain with Gabapentin. She tolerated it and she slept well on it but did not quite work for her pain Refer to Pain clinic for nerve block for post herpatic neuralgia. Assessment & Plan (10/02/2023 5:15 PM EDT): Developed shingles in July. Now has post herpetic neuralgia. Rash has faded with some discoloration left over. Will start on gabapentin for post herpetic neuralgia. Patient counseled and educated on adverse effects, drug interactions and to reach out to office/pharmacy if questions or concerns related to new medications. Resolved Problems Problem Noted Date Diagnosed Date Resolved Date Screening for hyperlipidemia 10/01/2023 02/04/2025 Assessment & Plan (10/02/2023 5:17 PM EDT): Screen for HLD. Screening for diabetes mellitus 10/01/2023 02/04/2025 Assessment & Plan (10/02/2023 5:17 PM EDT): Screen for T2 DM . Encounters Date Type Department Care Team Description 02/05/2025 Orders Only [facility] [address] [place] [address] Madeleine Castillo NP Other specified hypothyroidism (Primary Dx); Asymptomatic microscopic hematuria 02/05/2025 Clinisync Result Encounter [facility] Department Unsolicited Madeleine Castillo NP 02/04/2025 9:00 AM EDT Office Visit [facility] [address] [place] [address] Madeleine Castillo NP Medicare annual wellness visit, subsequent (Primary Dx); Primary hypertension ; Morbid obesity ([facility]); Other specified hypothyroidism ; Pre-diabetes; Body mass index (BMI) 40.0-44.9, adult ([facility]); Breast cancer screening declined 02/04/2025 Bamboo flowsheet [facility] [address] [place] [address] Madeleine Castillo NP from Last 3 Months Family History Relation Name Status Comments Father Mother Alive Social History Tobacco Use Types Packs/Day Years Used Date Smoking Tobacco: Former Cigarettes Passive Smoke Exposure: Past Smokeless Tobacco: Never Tobacco Cessation:Counseling Given: Not Answered Alcohol Use Standard Drinks/Week Comments Yes 0 (1 standard drink = 0.6 oz pur e alcohol) OCCASSIONAL PHQ-2 Answer Date Recorded Patient Health Questionnaire-2 Score 0 02/04/2025 Comments Unknown Sex and Gender Information Value Date Recorded Sex Assigned at Not on file Legal Sex Female 7:25 PM EDT Gender Identity Not on file Sexual Orientation Not on file Last Filed Vital Signs Vital Sign Reading Time Taken Comments Blood Pressure 126/80 02/04/2025 9:08 AM EDT Pulse 80 02/04/2025 9:08 AM EDT Temperature 36.9 C (98.5 F) 02/04/2025 9:08 AM EDT Respiratory Rate 20 02/04/2025 9:08 AM EDT Oxygen Saturation 96% 02/04/2025 9:08 AM EDT Inhaled Oxygen Concentration - - Weight 134 kg (295 lb 12.8 oz) 02/04/2025 9:08 A M EDT Height 172.7 cm (5' 8 ) 08/06/2024 8:53 AM EST Body Mass Index 44.98 08/06/2024 8:53 AM EST Plan of Treatment Health Maintenance Due Date Last Done Comments CT Colonography 1955 FIT-DNA 1955 FIT 1955 FOBT 1955 Sigmoidoscopy 1955 Influenza Vaccine (#1) 2025 Mammogram 02/04/2026 02/04/2025 (Lizbet ent Refused) Medicare Annual Wellness (AWV) 02/04/2026 02/04/2025, 11/04/2023, 11/04/2023 Pneumococcal Vaccine: 65+ Years (1 of 1 - PCV) 02/04/2026 Postponed from 10/01 (Patient Refused) Colonoscopy 07/01/2028 07/01/2018 Colorectal Cancer Screening 07/01/2028 Procedures Procedure Name Priority Date/Time Associated Diagnosis Comments MLR HEMOGLOBIN A1C Routine 02/05/2025 8: 39 AM EDT TBH MICROALB CREAT RATIO RANDOM Routine 02/05/2025 8:39 AM EDT ALL THYROID STIM HORMONE Routine 02/05/2025 8:39 AM EDT ALL LIPID PROFILE (FASTING) Routine 02/05/2025 8:39 AM EDT [facility] CMP (CMP) (FOR REMOTE [facility] USE) Routine 02/05/2025 8:39 AM EDT TBH URINE MICROSCOPIC ONLY Routine 02/05/2025 8:39 AM EDT TBH UA (CLEAN/CATCH) MICROSCOPIC IF INDICATE Routine 02/05/2025 8:39 AM EDT ALL CBC WITH AUTO DIFF Routine 02/05/2025 8:39 AM EDT from Last 3 Months Results * (ABNORMAL) TBH URINE MICROSCOPIC ONLY (02/05/2025 8:39 AM EDT) TBH WBC NONE SEEN NONE SEEN #/HPF TBH TBH RBC 10-20(A) 0 - 2 #/HPF TBH BACTERIA URINE TRACE(A) NONE SEEN #/HPF TBH MUCUS URINE NONE SEEN NONE SEEN TBH SQUAMOUS EPITHELIAL CELL URINE FEW(A) NONE/RARE #/LPF TBH CRYSTALS SEEN? None Seen None Seen #/HPF TBH CAST SEEN? NONE SEEN NONE SEEN #/LPF TBH 02/05/2025 8:39 AM EDT 02/05/2025 8:41 AM EDT Narrative CLINISYNC - 02/05/2025 9:19 AM EDT us Madeleine Castillo NP CLINISYNC Final Result Performing Organization Address [facility] de Phone Number CLINISYNC TBH * (ABNORMAL) TBH UA (CLEAN/CATCH) MICROSCOPIC IF INDICATE (02/05/2025 8:39 AM EDT) COLOR URINE YELLOW YELLOW TBH CLARITY URINE CLEAR CLEAR TBH SPECIFIC GRAVITY URINE 1.015 1.005 - 1.025 TBH PH URINE 7.5 5.0 - 9.0 TBH PROTEIN URINE NEGATIVE NEG/TRACE mg/dL TBH GLUCOSE URINE UA NEGATIVE NEGATIVE mg/dL TBH BILIRUBIN URINE NEGATIVE NEGATIVE TBH KETONES URINE TRACE(A) NEGATIVE mg/dL TBH BLOOD URINE MODERATE(A) NEGATIVE TBH NITRITE URINE NEGATIVE NEGATIVE TBH UROBILINOGEN URINE 1.0 0.2 - 1.0 EU/dL TBH LEUKOCYTE ESTERASE URINE NEGATIVE NEGATIVE TBH URINE MICROSCOPIC INDICATED YES TBH 02/05/2025 8:39 AM EDT 02/05/2025 8:41 AM EDT Narrative CLINISYNC - 02/05/2025 9:19 AM EDT us Madeleine Castillo NP CLINISYNC Final Result Performing Organization Address [facility] Co de Phone Number CLINISYNC TBH * TBH MICROALB CREAT RATIO RANDOM (02/05/2025 8:39 AM EDT) MICROALBUMIN URINE RANDOM 1.5 <=30.0 mg/dL TB CREATININE URINE RANDOM 165.46 20.00 - 300.00 mg/dL TB MICROALBUM CREATININE RATIO UR 9.0 0.0 - 29.9 mg/g TB Comment: NO MICROALBUMINURIA 0-29 MG/G CLINICAL MICROALBUMINURIA 30-300 MG/G MACROALBUMINURIA >300 MG/G 02/05/2025 8:39 AM EDT 02/05/2025 8:41 AM EDT Narrative CLINISYNC - 02/05/2025 9:34 AM EDT Madeleine Castillo NP CLINISYNC Final Result Performing Organization Address [facility] de [facility] * MLR HEMOGLOBIN A1C (02/05/2025 8:39 AM EDT) GLYCOHEMOGLOBIN A1C 5.8 4.5 - 6.2 % TB Comment: ADA RECOMMENDED LIMIT 4.0 - 6.0 ADA THERAPEUTIC TARGET < 7.0 ACTION SUGGESTED > 7.0 ESTIMATED AVERAGE GLUCOSE 120 mg/dL TB 02/05/2025 8:39 AM EDT 02/05/2025 8:41 AM EDT Narrative CLINISYNC - 02/05/2025 9:46 AM EDT Madeleine Castillo NP CLINISYNC Final Result Performing Organization Address City/[facility]/ZIP Co de Phone Number [facility]NC [facility] * (ABNORMAL) [facility] CMP (CMP) (FOR REMOTE [facility] USE) (02/05/2025 8:39 AM EDT) SODIUM 143 136 - 145 mmol/L TBH POTASSIUM 3.9 3.5 - 5.1 mmol/L TBH CHLORIDE 106 98 - 107 mmol/L TBH CARBON DIOXIDE 27.0 21.0 - 32.0 mmol/L TBH ANION GAP 13.9 TBH GLUCOSE 109(H) 74 - 106 mg/dL TB BLOOD UREA NITROGEN 14.0 7.0 - 18.0 mg/dL TBH CREATININE 0.73 0.55 - 1.02 mg/dL TBH TBH EGFR-AF CUBAN >60 >=60 mL/min/1. 73m 2 TBH TBH EGFR-NON AF CUBAN >60 >=60 mL/min/1. 73m 2 TBH BUN CREATININE RATIO 19.2 TBH CALCIUM 8.8 8.5 - 10.1 mg/dL TBH BILIRUBIN TOTAL 0.5 0.2 - 1.0 mg/dL TBH ASPARTATE AMINO TRANSFERASE 20 15 - 37 U/L TBH ALANINE AMINOTRANSFERASE 33 14 - 59 U/L TBH ALKALINE PHOSPHATASE 88 46 - 116 U/L TBH TOTAL PROTEIN 6.9 6.4 - 8.2 g/dL TBH ALBUMIN LEVEL 3.6 3.4 - 5.0 g/dL TBH GLOBULIN 3.3 g/dL TBH ALBUMIN GLOBULIN RATIO 1.1 TBH 02/05/2025 8:39 AM EDT 02/05/2025 8:41 AM EDT Narrative CLINISYNC - 02/05/2025 9:23 AM EDT us Madeleine Castillo NP CLINISYNC Final Result [facility] * (ABNORMAL) ALL THYROID STIM HORMONE (02/05/2025 8:39 AM EDT) THYROID STIMULATING HORMONE 5.247(H) 0.358 - 3.740 uIU/mL TB 02/05/2025 8:39 AM EDT 02/05/2025 8:41 AM EDT Narrative CLINISYNC - 02/05/2025 9:23 AM EDT Madeleine Castillo NP CLINISYNC Final Result [facility] * ALL LIPID PROFILE (FASTING) (02/05/2025 8:39 AM EDT) TRIGLYCERIDES 113 <=150 mg/dL TBH CHOLESTEROL 187 <=200 mg/dL TBH HDL CHOLESTEROL 42 40 - 60 mg/dL TBH Comment: > or =60 mg/dl - LOW CARDIOVASCULAR RISK <40 mg/dl - HIGH CARDIOVASCULAR RISK LDL CHOLESTEROL CALCULATED 122.4 mg/dL TB Comment: <100 mg/dl OPTIMAL 100-129 mg/dl NEAR OR ABOVE OPTIMAL 130-159 mg/dl BORDERLINE HIGH 160-189 mg/dl HIGH >190 mg/dl VERY HIGH VLDL CHOLESTEROL 22.6 mg/dL TB CHOL HDL RATIO 4.5 TB Comment: 3.3 - 4.4 LOW RISK 4.4 - 7.1 AVERAGE RISK 7.1 - 11.0 MODERATE RISK >11.0 HIGH RISK 02/05/2025 8:39 AM EDT 02/05/2025 8:41 AM EDT Narrative CLINISYNC - 02/05/2025 9:23 AM EDT us Madeleine Castillo NP CLINISYNC Final Result [facility] * (ABNORMAL) ALL CBC WITH AUTO DIFF (02/05/2025 8:39 AM EDT) TB WBC 7.3 4.0 - 11.0 10 3/uL TBH TBH RBC 4.83 4.20 - 5.40 10 6/uL TBH TB HGB 12.6 12.0 - 16.0 g/dL TB TB HCT 39.2 36.0 - 48.0 % TBH TBH MCV 81.2 81.0 - 99.0 fL TB TB MCH 26.1(L) 26.7 - 34.0 pg TBH TB MCHC 32.1 29.9 - 35.2 g/dL TB TB RDW 15.2(H) 11.0 - 15.0 % TBH TBH PLT 263 150 - 450 10 3/uL TBH TB MPV 10.3 9.5 - 13.5 fL TBH NEUTROPHILS PERCENT AUTO 63.8 43.0 - 75.0 % TBH LYMPHOCYTES PERCENT AUTO 23.7 20.5 - 60.0 % TBH MONOCYTES PERCENT AUTO 8.1 1.7 - 12.0 % TBH TBH EO % 3.2 0.9 - 7.0 % TBH BASOPHILS PERCENT AUTO 1.1 0.2 - 2.0 % TBH IMMATURE GRANULOCYTES PCT AUTO 0.1 0.0 - 0.5 % TBH NEUTROPHILS ABSOLUTE AUTO 4.6 1.4 - 6.5 10 3/uL TBH LYMPHOCYTES ABSOLUTE AUTO 1.7 1.2 - 3.8 10 3/uL TBH MONOCYTES ABSOLUTE AUTO 0.6 0.3 - 0.8 10 3/uL TBH TBH EO # 0.2 0.0 - 0.7 10 3/uL TBH BASOPHILS ABSOLUTE AUTO 0.1 0.0 - 0.1 10 3/uL TBH IMMATURE GRANULOCYTES ABS AUTO 0.01 0.00 - 0.03 10 3/uL TBH 02/05/2025 8:39 AM EDT 02/05/2025 8:41 AM EDT Narrative CLINISYNC - 02/05/2025 8:55 AM EDT us Madeleine Castillo CIGAR MAKING SUPERVISOR CLINISYNC Final Result [facility] from Last 3 Months Insurance [employer] Care Teams [place] Attendant Relationship Specialty Start Date End Date David Swain MD [address] [place] [address] PCP - [employer] 07/01/23 David Swain MD [address] [place] [address] PCP - General Family Medicine 01/29/24 Lucille Oviedo NP [address] [place] [address] Nurse Practitioner Family Medicine 01/29/24
--- OUTSIDE RECORDS SUMMARY | 2025-03-05 12:42 | XMS_ITS | CCD ---
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 Operator Name Role Phone DR DAVID ABBOTT Primary Care Unavailable PAY ., DR TOLENTINO Admitting Unavailable PAY ., DR TOLENTINO Attending Unavailable ELENA, DR MIRANDA Forrest Consulting Unavailable PAY ., DR TOLENTINO Consulting Unavailable ESTELLE CHU Consulting Unavailable Papo JUNG, Felix Moran Attending Unavailable Papo JUNG, Felix Moran Attending Unavailable Papo JUNG, Felix Moran Attending Unavailable David Abbott MD Unavailable Ivelisse CALL CENTER TEAM LEADER, Lucille Unavailable David Abbott MD Primary Care Provider Ivelisse CALL CENTER TEAM LEADER, Lucille Unavailable [phone] LUCILLE OVIEDO Attending UnavailDESI Leyva Attending Unavailable LUCILLE OVIEDO Referring UnavailMADELEINE Reed Attending Unavailable Allergies Allergy Classification Reported Allergen(s) Allergy Type Date of Onset Reaction(s) Facility (1 source) valdecoxib Drug Allergy [facility] Repository (4 sources) valdecoxib Drug Allergy 02-04-2025 Anxiety [facility] Problems Active Problems Problem Classification Problem Date Documented Da te Episodic/Chronic Diabetes mellitus without complication (7 sources) Prediabetes; Translations: [Prediabetes] Onset: 02-04-2025 02-04-2025 Episodic Essential hypertension (15 sources) Essential hypertension; Translations: [Essential (primary) hypertension] Onset: 10-01-2023 10-01-2023 Chronic Genitourinary symptoms and ill-defined conditions (2 sources) Asymptomatic microscopic hematuria; Translations: [Asymptomatic microscopic hematuria] Onset: 02-05-2025 02-05-2025 Episodic Other and unspecified benign neoplasm (2 sources) Melanocytic nevus of trunk; Translations: [Melanocytic nevi of trunk] 08-11-2024 Episodic Other circulatory disease (2 sources) Spider nevus; Translations: [Nevus, non-neoplastic] 08-11-2024 Episodic Other lower respiratory disease (4 sources) Other forms of dyspnea; Translations: [OTHER FORMS OF DYSPNEA] Onset: 11-09-2022 Episodic Other lower respiratory disease (1 source) Solitary pulmonary nodule; Translations: [SOLITARY PULMONARY NODULE] Onset: 11-12-2022 Episodic Other nutritional; endocrine; and metabolic disorders (13 sources) Morbid obesity; Translations: [Morbid (severe) obesity due to excess calories] Onset: 10-01-2023 10-01-2023 Chronic Other nutritional; endocrine; and metabolic disorders (7 sources) Body mass index 40+ - severely obese; Translations: [Body mass index (BMI) 40.0-44.9, adult] Onset: 02-04-2025 02-04-2025 Chronic Other skin disorders (2 sources) Seborrheic keratosis; Translations: [Other seborrheic keratosis] 08-11-2024 Episodic Other skin disorders (2 sources) Lentigo simplex; 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] 08-11-2024 Episodic Other skin disorders (2 sources) Epidermoid cyst; Translations: [Epidermal cyst] 08-11-2024 Episodic Other skin disorders (2 sources) Milia; Translations: [Epidermal cyst] 08-11-2024 Episodic Residual codes; unclassified (1 source) Localized edema; Translations: [LOCALIZED EDEMA] Onset: 11-12-2022 Episodic Screening and history of mental health and substance abuse codes (1 source) Personal history of nicotine dependence; Translations: [PERSONAL HISTORY OF NICOTINE DEPEND] Onset: 11-12-2022 Episodic Thyroid disorders (14 sources) Hypothyroidism; Translations: [Other specified hypothyroidism] Onset: 10-01-2023 10-01-2023 Chronic Unclassified (1 source) PT NONCOMP OTH MED TX/REG UNS REASN; Translations: [PT NONCOMP OTH MED TX/REG UNS REASN] Onset: 11-12-2022 Past or Other Problems Problem Classification Problem Date Documented Da te Episodic/Chronic Mood disorders (11 sources) Mood disorders Onset: 11-04-2023 Resolved: 02-04-2025 11-04-2023 Neoplasms of unspecified nature or uncertain behavior (14 sources) 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; 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] Onset: 08-06-2024 08-06-2024 Episodic Other screening for suspected conditions (not mental disorders or infectious disease) (20 sources) Other specified abnormal findings of blood chemistry; Translations: [Abnormal results of thyroid function studies] Onset: 11-12-2022 Resolved: 02-04-2025 10-01-2023 Episodic Viral infection (11 sources) Postherpetic neuralgia; Translations: [Other postherpetic nervous system involvement] Onset: 10-01-2023 10-01-2023 Episodic Results Test Name Value Interpretation Reference Range Facility ALL CBC WITH AUTO DIFFon BASOPHILS ABSOLUTE AUTO 0.1 [facility] Basophils/100 WBC (Bld) 1.1 % 0.2 - 2.0 % [facility] Eosinophils/100 WBC (Bld) 3.2 % 0.9 - 7.0 % [facility] Erythrocyte distribution width (RBC) [Ratio] 15.2 % High 11.0 - 15.0 % [facility] Hematocrit (Bld) [Volume fraction] 39.2 % 36.0 - 48.0 % [facility] [Mass/Vol] 12.6 g/dL 12.0 - 16.0 g/dL [facility] IMMATURE GRANULOCYTES ABS AUTO 0.01 [facility] Immature granulocytes/100 WBC (Bld) 0.1 % 0.0 - 0.5 % [facility] Interpretation and review of laboratory results Abnormal [facility] LYMPHOCYTES ABSOLUTE AUTO 1.7 [facility] Lymphocytes/100 WBC (Bld) 23.7 % 20.5 - 60.0 % [facility] MCH (RBC) [Entitic mass] 26.1 pg Low 26.7 - 34.0 pg [facility] MCHC (RBC) [Mass/Vol] 32.1 g/dL 29.9 - 35.2 g/dL [facility] MCV (RBC) [Entitic vol] 81.2 fL 81.0 - 99.0 fL [facility] MONOCYTES ABSOLUTE AUTO 0.6 [facility] Monocytes/100 WBC (Bld) 8.1 % 1.7 - 12.0 % [facility] NEUTROPHILS ABSOLUTE AUTO 4.6 [facility] Neutrophils/100 WBC (Bld) 63.8 % 43.0 - 75.0 % [facility] Platelet mean volume (Bld) [Entitic vol] 10.3 fL 9.5 - 13.5 fL [facility] EO # 0.2 [facility] PLT 263 [facility] RBC 4.83 [facility] WBC 7.3 [facility] BNPon 11-09-2022 Natriuretic peptide B (Bld) [Mass/Vol] 1608.0 pg/mL Critically high <=900.0 [facility] Comment on above: Performed By: #### C MP, HSTROPN, CK, BNP, TSH #### [facility] [address] [place] [address] Dr. Jeremy Sainz CBC AUTO DIFFon 11-09-2022 BASO # 0.1 103/ul Normal 0.0-0.1 [facility] Comment on above: Performed By: #### C BC #### [facility] [address] [place] [address] Dr. Jeremy Sainz Basophils/100 WBC (Bld) 0.7 % Normal 0.2-2.0 [facility] Comment on above: Performed By: #### C BC #### [facility] [address] [place] [address] Dr. Jeremy Sainz EO # 0.1 103/ul Normal 0.0-0.7 [facility] Comment on above: Performed By: #### C BC #### [facility] [address] [address] [address] Jeremy Sainz Eosinophils/100 WBC (Bld) 0.7 % Critically low 0.9-7.0 [facility] Comment on above: Performed By: #### C BC #### [facility] [address] [place] [address] Dr. Jeremy Sainz Erythrocyte distribution width (RBC) [Ratio] 15.9 % Critically high 11.0-15.0 [facility] Comment on above: Performed By: #### C BC #### [facility] [address] [place] [address] Dr. Jeremy Sainz Hematocrit (Bld) [Volume fraction] 40.3 % Normal 36.0-48.0 [facility] Comment on above: Performed By: #### C BC #### [facility] [address] [place] [address] Dr. Jeremy Sainz Hemoglobin (Bld) [Mass/Vol] 12.8 g/dL Normal 12.0-16.0 [facility] Comment on above: Performed By: #### C BC #### [facility] [address] [place] [address] Dr. Jeremy Sainz IG # 0.02 10e3/ul Normal 0.00-0.03 [facility] Comment on above: Performed By: #### C BC #### [facility] [address] [place] [address] Dr. Jeremy Sainz IG % 0.3 % Normal 0.0-0.5 [facility] Comment on above: Performed By: #### C BC #### [facility] [address] [place] [address] Dr. Jeremy Sainz LYMPH # 1.6 103/ul Normal 1.2-3.8 [facility] Comment on above: Performed By: #### C BC #### [facility] [address] [place] [address] Dr. Jeremy Sainz Lymphocytes/100 WBC (Bld) 21.6 % Normal 20.5-60.0 [facility] Comment on above: Performed By: #### C BC #### [facility] [address] [place] [address] Dr. Jeremy Sainz MANUAL DIFF REQ NO Normal [facility] Comment on above: Performed By: #### C BC #### [facility] [address] [place] [address] Dr. Jeremy Sainz MCH (RBC) [Entitic mass] 25.7 pg Critically low 26.7-34.0 [facility] Comment on above: Performed By: #### C BC #### [facility] [address] [address] [address] Jeremy Sainz MCHC (RBC) [Mass/Vol] 31.8 g/dL Normal 29.9-35.2 [facility] Comment on above: Performed By: #### C BC #### [facility] [address] [address] [address] Jeremy Sainz MCV (RBC) [Entitic vol] 80.9 fL Critically low 81.0-99.0 [facility] Comment on above: Performed By: #### C BC #### [facility] [address] [place] [address] Dr. Jeremy Sainz MONO # 0.4 103/ul Normal 0.3-0.8 [facility] Comment on above: Performed By: #### C BC #### [facility] [address] [place] [address] Dr. Jeremy Sainz Monocytes/100 WBC (Bld) 5.3 % Normal 1.7-12.0 [facility] Comment on above: Performed By: #### C BC #### [facility] [address] [place] [address] Dr. Jeremy Sainz NEUT # 5.4 103/ul Normal 1.4-6.5 [facility] Comment on above: Performed By: #### C BC #### [facility] [address] [place] [address] Dr. Jeremy Sainz Neutrophils/100 WBC (Bld) 71.4 % Normal 43.0-75.0 [facility] Comment on above: Performed By: #### C BC #### [facility] [address] [place] [address] Dr. Jeremy Sainz Platelet mean volume (Bld) [Entitic vol] 10.5 fL Normal 9.5-13.5 [facility] Comment on above: Performed By: #### C BC #### [facility] [address] [place] [address] Dr. Jeremy Sainz PLT 279 103/ul Normal 150-450 [facility] Comment on above: Performed By: #### C BC #### [facility] [address] [place], [place] [address] Dr. Jeremy Sainz RBC 4.98 106/ul Normal 4.20-5.40 [facility] Comment on above: Performed By: #### C BC #### [facility] [address] [place], [place] [address] Dr. Jeremy Sainz WBC 7.5 103/ul Normal 4.0-11.0 [facility] Comment on above: Performed By: #### C BC #### [facility] [address] [address] [address] Jeremy Sainz CPKon 11-09-2022 CK [Catalytic activity/Vol] 103 U/L Normal 26-192 [facility] Comment on above: Performed By: #### C MP, HSTROPN, CK, BNP, TSH #### [facility] [address] [place] [address] [id number] [address] Jeremy Sainz CTA CHEST WO W [...] by: MIRANDA PARKER Date: 2022-11-09 10:04 Normal [facility] D-DIMERon 11-09-2022 D-DIMER 0.64 mg/L FEU Critically high <=0.59 [facility] Comment on above: Performed By: #### D DIM ####[facility] [id number] [address] Jeremy Sainz D-DIMER COMMENTS SEE BELOW Normal [facility] Comment on above: Result Comment: Incr [...] generalized hospitalization. Performed By: #### D DIM ####[facility] [id number] [address]Dr. Jeremy Sainz ER URINE PROFILEon 3 Bilirubin Ql (U) Negative Normal NEGATIVE [facility] Comment on above: Performed By: #### Trini MORGAN UMICRO #### [facility] [address] [place] [address] Dr. Jeremy Sainz Clarity (U) CLEAR Normal CLEAR [facility] Comment on above: Performed By: #### Trini RULon UMICRO #### [facility] [address] [place] [address] Dr. Jeremy Sainz Color (U) YELLOW Normal YELLOW [facility] Comment on above: Performed By: #### E CATHY UMICRO #### [facility] [address] [place] [address] Dr. Jeremy Sainz ERUJOYCE A micrscopic examination will be performed if indicated. Normal [facility] Comment on above: Performed By: #### E RUR UMICRO #### [facility] [address] [place] [address] Dr. Jeremy Sainz Glucose Ql (U) Negative Normal NEGATIVE [facility] Comment on above: Performed By: #### E RUR, UMICRO #### [facility] [address] [place] [address] Dr. Jeremy Sainz Hemoglobin Ql (U) MODERATE Abnormal NEGATIVE [facility] Comment on above: Performed By: #### Trini MORGAN UMICRO #### [facility] [address] [place] [address] Dr. Jeremy Sainz Ketones Ql (U) Negative Normal NEGATIVE [facility] Comment on above: Performed By: #### Trini MORGAN UMICRO #### [facility] [address] [place] [address] Dr. Jeremy Sainz LEUKOCYTES TRACE Abnormal NEGATIVE [facility] Comment on above: Performed By: #### Trini MORGAN UMICRO #### [facility] [address] [place] [address] Dr. Jeremy Sainz Nitrite Ql (U) Negative Normal NEGATIVE [facility] Comment on above: Performed By: #### ADRIANNA PINEDAICRO #### [facility] [address] [place] [address] Dr. Jeremy Sainz pH (U) 7.5 [pH] Normal 5-9 [facility] Comment on above: Performed By: #### ADRIANNA PINEDAICRO #### [facility] [address] [place] [address] Dr. Jeremy Sainz SPEC GRAVITY 1.020 Normal 1.005-<=1.025 [facility] Comment on above: Performed By: #### ADRIANNA PINEDAICRO #### [facility] [address] [place] [address] Dr. Jeremy Sainz UA PROTEIN Negative Normal NEGATIVE/ TRACE [facility] Comment on above: Performed By: #### ADRIANNA PINEDAICRO #### [facility] [address] [place] [address] Dr. Jeremy Sainz UR MICRO IND INDICATED Normal [facility] Comment on above: Performed By: #### Trini MORGAN UMICRO #### [facility] [address] [place] [address] Dr. Jeremy Sainz Urobilinogen Qn (U) 1.0 {Edison'U}/dL Normal 0.2 - 1. 0 [facility] Comment on above: Performed By: #### E SKYLAR MORGAN #### [facility] [address] [place] [address] Dr. Jeremy Sainz PROF 14(COMP METB)on 023 Albumin [Mass/Vol] 3.6 g/dL Normal 3.4-5.0 [facility] Comment on above: Performed By: #### C MP, HSTROPN, CK, BNP, TSH #### [facility] [address] [place] [address] Dr. Jeremy Sainz Albumin/Globulin [Mass ratio] 1.0 {ratio} Normal [facility] Comment on above: Performed By: #### C MP, HSTROPN, CK, BNP, TSH #### [facility] [address] [place] [address] Dr. Jeremy Sainz ALP [Catalytic activity/Vol] 88 U/L Normal 46-116 [facility] Comment on above: Performed By: #### C MP, HSTROPN, CK, BNP, TSH #### [facility] [address] [place] [address] Dr. Jeremy Sainz ALT [Catalytic activity/Vol] 38 U/L Normal 14-59 [facility] Comment on above: Performed By: #### C MP, HSTROPN, CK, BNP, TSH #### [facility] [address] [place] [address] Dr. Jeremy Sainz Anion gap [Moles/Vol] 15.1 mmol/L Normal [facility] Comment on above: Performed By: #### C MP, HSTROPN, CK, BNP, TSH #### [facility] [address] [place] [address] Dr. Jeremy Sainz AST [Catalytic activity/Vol] 23 U/L Normal 15-37 [facility] Comment on above: Performed By: #### C MP, HSTROPN, CK, BNP, TSH #### [facility] [address] [place] [address] Dr. Jeremy Sainz Bilirubin [Mass/Vol] 0.4 mg/dL Normal 0.2-1.0 [facility] Comment on above: Performed By: #### C MP, HSTROPN, CK, BNP, TSH #### [facility] [address] [place] [address] Dr. Jeremy Sainz Calcium [Mass/Vol] 8.8 mg/dL Normal 8.5-10.1 [facility] Comment on above: Performed By: #### C MP, HSTROPN, CK, BNP, TSH #### [facility] [address] [address] [address] Jeremy Sainz Chloride [Moles/Vol] 108 mmol/L Critically high 98-107 [facility] Comment on above: Performed By: #### C MP, HSTROPN, CK, BNP, TSH #### [facility] [address] [place] [address] Dr. Jeremy Sainz CO2 [Moles/Vol] 26.6 mmol/L Normal 21.0-32.0 [facility] Comment on above: Performed By: #### C MP, HSTROPN, CK, BNP, TSH #### [facility] [address] [address] [address] Jeremy Sainz Creatinine [Mass/Vol] 0.97 mg/dL Normal 0.55-1.02 [facility] Comment on above: Performed By: #### C MP, HSTROPN, CK, BNP, TSH #### [facility] [address] [place] [address] Dr. Jeremy Sainz EGFR-AF [place]ER >60 Normal >=60 [facility] Comment on above: Performed By: #### C MP, HSTROPN, CK, BNP, TSH #### [facility] [address] [place] [address] Dr. Jeremy Sainz EGFR-NON AF [place] 57 mL/min/1.73m2 Critically low >=60 [facility] Comment on above: Performed By: #### C MP, HSTROPN, CK, BNP, TSH #### [facility] [address] [place] [address] Dr. Jeremy Sainz Globulin (S) [Mass/Vol] 3.6 g/dL Normal [facility] Comment on above: Performed By: #### C MP, HSTROPN, CK, BNP, TSH #### [facility] [address] [place] [address] Dr. Jeremy Sainz Glucose [Mass/Vol] 117 mg/dL Critically high 74-106 [facility] Comment on above: Performed By: #### C MP, HSTROPN, CK, BNP, TSH #### [facility] [address] [place] [address] Dr. Jeremy Sainz Potassium [Moles/Vol] 3.7 mmol/L Normal 3.5-5.1 [facility] Comment on above: Performed By: #### C MP, HSTROPN, CK, BNP, TSH #### [facility] [address] [place] [address] Dr. Jeremy Sainz Protein [Mass/Vol] 7.2 g/dL Normal 6.4-8.2 [facility] Comment on above: Performed By: #### C MP, HSTROPN, CK, BNP, TSH #### [facility] [address] [place] [address] Dr. Jeremy Sainz Sodium [Moles/Vol] 146 mmol/L Critically high 136-145 [facility] Comment on above: Performed By: #### C MP, HSTROPN, CK, BNP, TSH #### [facility] [address] [place] [address] Dr. Jeremy Sainz Urea nitrogen [Mass/Vol] 11.0 mg/dL Normal 7.0-18.0 [facility] Comment on above: Performed By: #### C MP, HSTROPN, CK, BNP, TSH #### [facility] [address] [place] [address] Dr. Jeremy Sainz Urea nitrogen/Creatinine [Mass ratio] 11.3 mg/mg Normal [facility] Comment on above: Performed By: #### C MP, HSTROPN, CK, BNP, TSH #### [facility] [address] [place] [address] Dr. Jeremy Sainz TROPONIN, HIGH SENSITIVITYon 11-09-2022 HSTROP 11.6 pg/mL Normal 4.0-51.3 [facility] Comment on above: Result Comment: CUT- OFF POINTS HAVE BEEN ESTABLISHED BASED ON THE FOURTH UNIVERSAL DEFINITIONS OF MYOCARDIAL INFARCTION. THE UPPER REFERENCE LIMIT (URL) OF TROPONIN, DEFINED THE 99TH PERCENTILE OF cTnI DISTRIBUTION IN A REFERENCE POPULATION, HAS BEEN CONFIRMED THE DECISION THRESHOLD FOR LA DIAGNOSIS. Performed By: #### C MP, HSTROPN, CK, BNP, TSH #### [facility] [address] [address] [address] Jeremy Sainz TSHon 11-09-2022 TSH 3.659 uIU/mL Normal 0.358-3.740 [facility] Comment on above: Performed By: #### C MP, HSTROPN, CK, BNP, TSH #### [facility] [address] [address] [address] Jeremy Sainz URINE MICROSCOPIC ONLYon BACTERIA TRACE Abnormal NONE SEEN [facility] Comment on above: Performed By: #### E RUR, UMICRO #### [facility] [address] [address] [address] Jeremy Sainz Bacteria identified Cx Nom (U) NOT INDICATED Normal [facility] Comment on above: Performed By: #### E RUR, UMICRO #### [facility] [address] [address] [address] Jeremy Sainz CAST NONE SEEN Normal NONE SEEN [facility] Comment on above: Performed By: #### E RUR, UMICRO #### [facility] [address] [address] [address] Jeremy Sainz Crystals LM Nom (Urine sed) NONE SEEN Normal NONE SEEN [facility] Comment on above: Performed By: #### E RUR, UMICRO #### [facility] [address] [address] [address] Jeremy Sainz Epithelial cells LM Ql (Urine sed) FEW Abnormal NONE SEEN /RARE [facility] Comment on above: Performed By: #### E RUR, UMICRO #### [facility] [address] [address] [address] Jeremy Sainz MUCOUS TRACE Abnormal NONE SEEN [facility] Comment on above: Performed By: #### Trini SKYLAR MORGAN #### [facility] [address] [place], [place] [address] Dr. Jeremy Sainz RBC 5-10 Abnormal 0-2 [facility] Comment on above: Performed By: #### SKYLAR PINEDA #### [facility] [id number] Jeremy Sainz WBC 2-5 Abnormal NONE SEEN [facility] Comment on above: Performed By: #### SKYLAR PINEDA #### [facility] [address] [address] [address] Jeremy Sainz XR CHEST 2 Von [...] ESTELLE CHU Date: 2022-11-09 08:34 Normal [facility] Vital Signs Date Time Vital Sign Value Performing Clinician Faci lity 02-04-2025 09:08-0400 Body mass index (BMI) [Ratio] 44.98 kg/m2 Madeleine Castillo CALL CENTER TEAM LEADER Work Phone: [facility] 02-04-2025 09:08-0400 Body temperature 98.49 [degF] Madeleine Castillo NP Work Phone: [facility] 02-04-2025 09:08-0400 Body weight 134.17 kg Madeleine Castillo NP Work Phone: [facility] 02-04-2025 09:08-0400 Diastolic blood pressure 80 mm[Hg] Madeleine Kinhholz CALL CENTER TEAM LEADER Work Phone: [facility] 02-04-2025 09:08-0400 Heart rate 80 /min Madeleine Kinhholz CALL CENTER TEAM LEADER Work Phone: [facility] 02-04-2025 09:08-0400 Respiratory rate 20 /min Madeleine Herbholz CALL CENTER TEAM LEADER Work Phone: [facility] 02-04-2025 09:08-0400 SaO2% (BldA) [Mass fraction] 96 % Madeleine Kinhholz CALL CENTER TEAM LEADER Work Phone: [facility] 02-04-2025 09:08-0400 Systolic blood pressure 126 mm[Hg] Madeleine Aichholz CALL CENTER TEAM LEADER Work Phone: [facility] 08-06-2024 08:53-0500 Body height 172.7 cm Lucille Oviedo CALL CENTER TEAM LEADER Work Phone: [facility] 08-06-2024 08:53-0500 Body mass index (BMI) [Ratio] 44.25 kg/m2 Lucille Oviedo CALL CENTER TEAM LEADER Work Phone: [facility] 08-06-2024 08:53-0500 Body temperature 97.2 [degF] Lucille Oviedo CALL CENTER TEAM LEADER Work Phone: [facility] 08-06-2024 08:53-0500 Body weight 132 kg Lucille Oviedo CALL CENTER TEAM LEADER Work Phone: [facility] 08-06-2024 08:53-0500 Diastolic blood pressure 80 mm[Hg] Lucille Oviedo CALL CENTER TEAM LEADER Work Phone: [facility] 08-06-2024 08:53-0500 Heart rate 75 /min Lucille Oviedo CALL CENTER TEAM LEADER Work Phone: [facility] 08-06-2024 08:53-0500 Respiratory rate 16 /min Lucille Oviedo CALL CENTER TEAM LEADER Work Phone: [facility] 08-06-2024 08:53-0500 SaO2% (BldA) [Mass fraction] 97 % Lucille Oviedo CALL CENTER TEAM LEADER Work Phone: [facility] 08-06-2024 08:53-0500 Systolic blood pressure 130 mm[Hg] Lucille Oviedo CALL CENTER TEAM LEADER Work Phone: [facility] Encounters Encounter Date Encounter Type Care Provider Facility Start: 02-05-2025 End: 02-05-2025 Clinisync Result Encounter Madeleine Estevezlandry CALL CENTER TEAM LEADER Work Phone: [facility] Unsolicited Start: 02-05-2025 End: 02-05-2025 Clinisync Result Encounter Madeleine Sandersonabhishek CALL CENTER TEAM LEADER Work Phone: [facility] Unsolicited Start: 02-05-2025 End: 02-05-2025 Orders Only Madeleine Anna CALL CENTER TEAM LEADER Work Phone: [facility] Comment on above: Other specified hypo thyroidism (Primary Dx); Asymptomatic microscopic hematuria Start: 02-04-2025 End: 02-04-2025 Bamboo flowsheet Madeleine nAna CALL CENTER TEAM LEADER Work Phone: [facility] Start: 02-04-2025 End: 02-04-2025 Bamboo flowsheet Madeleine Kinmarcoslandry CALL CENTER TEAM LEADER Work Phone: [facility] Start: 02-04-2025 End: 02-04-2025 Patient encounter procedure Madeleine Kinmarcoslandry CALL CENTER TEAM LEADER Work Phone: [facility] Comment on above: Medicare annual well ness visit, subsequent (Primary Dx); Primary hypertension ; Morbid obesity ([facility]); Other specified hypothyroidism ; Pre-diabetes; Body mass index (BMI) 40.0-44.9, adult (CMS-HCC); Breast cancer screening declined Start: 02-04-2025 End: 02-04-2025 ambulatory MADELEINE ANNA Not Available Start: 08-11-2024 End: 08-11-2024 Office outpatient new 30 minutes [facility] Work Phone: [facility] Comment on above: Capillary angioma (P rimary Dx); Seborrheic keratosis; Lentigo simplex; Melanocytic nevus of trunk; Epidermal inclusion cyst; Milia Start: 08-11-2024 End: 08-11-2024 ambulatory DESI [facility] Not Available Start: 08-11-2024 End: 08-11-2024 Bamboo flowsheet [facility] Work Phone: [facility] Start: 08-11-2024 End: 08-11-2024 Bamboo flowsheet Desi [facility] Work Phone: [facility] Start: 08-06-2024 End: 08-06-2024 Bamboo flowsheet Lucille Oviedo CALL CENTER TEAM LEADER Work Phone: [facility] Start: 08-06-2024 End: 08-06-2024 Bamboo flowsheet Lucille Oviedo CALL CENTER TEAM LEADER Work Phone: [facility] Start: 08-06-2024 End: 08-06-2024 Office outpatient visit 15 minutes Lucille Oviedo CALL CENTER TEAM LEADER Work Phone: [facility] Comment on above: Primary hypertension (CMS/HCC) (Primary Dx); Neoplasm of uncertain behavior of breast, right Start: 08-06-2024 End: 08-06-2024 ambulatory LUCILLE OVIEDO Not Available Start: 12-23-2023 End: 12-23-2023 ambulatory Felix Barros MD Facility: [facility] Start: 12-09-2023 End: 12-09-2023 ambulatory Felix Barros MD Facility: [facility] Start: 11-11-2023 End: 11-11-2023 ambulatory Felix Barros MD Facility: [facility] Start: 11-04-2023 Patient encounter procedure Lucille Oviedo CALL CENTER TEAM LEADER Work Phone: [facility] Start: 11-09-2022 End: 11-09-[address] DAVID ABBOTT Facility:[facility] Procedures Date Procedure Procedure Detail Performing Clinician Start: 02-05-2025 ALL CBC WITH AUTO DIFF Madeleine Castillo CALL CENTER TEAM LEADER Work Phone: Start: 02-04-2025 Breast cancer screen ing declined Breast cancer screening declined Madeleine Castillo CALL CENTER TEAM LEADER Work Phone: Start: 02-04-2025 Mammography Madeleine pena CALL CENTER TEAM LEADER Work Phone: Start: 07-01-2018 Colonoscopy Lucille alanis CALL CENTER TEAM LEADER Work Phone: Plan of Treatment Date Care Activity Detail Author Start: 07-01-2028 Screening for malign ant neoplasm of colon [facility] Start: 02-08-2026 End: 02-08-2026 Patient encounter procedure 02/08/2026 10:00 AM EDT Office Visit [facility] [address] [place] [id number] Madeleine Castillo, TODD [address] [place] [phone] [facility] Start: 02-04-2026 Medicare Annual Well ness (AWV) Medicare Annual Wellness (AWV) [facility] Start: 02-04-2026 Pneumococcal Vaccine : 65+ Years (1 of 1 - PCV) Pneumococcal Vaccine: 65+ Years (1 of 1 - PCV) [facility] Comment on above: Postponed from 10/28 (Patient Refused) Start: 02-04-2026 Screening for malign ant neoplasm of breast Mammogram [facility] Start: 08-09-2025 End: 08-09-2025 Patient encounter procedure 08/09/2025 9:00 AM EST Office Visit [facility] [address] [place] [id number] Madeleine Castillo, CALL CENTER TEAM LEADER [address] [place] [address] [facility] Start: 03-08-2025 End: 02-05-2026 Bacteria identified in Urine by Culture Urine culture (clean catch) Microbiology Routine Asymptomatic microscopic hematuria Expected: 03/08/2025 (Approximate), Expires: 02/05/2026 [facility] Comment on above: Expected: 03/08/2025 (Approximate), Expires: 02/05/2026 Start: 03-08-2025 End: 02-05-2026 Thyrotropin [Units/volume] in Serum or Plasma TSH Lab Routine Other specified hypothyroidism Expected: 03/08/2025 (Approximate), Expires: 02/05/2026 [facility] Comment on above: Expected: 03/08/2025 (Approximate), Expires: 02/05/2026 Start: 03-08-2025 End: 02-05-2026 Thyroxine (T4) free [Mass/volume] in Serum or Plasma T4, free Lab Routine Other specified hypothyroidism Expected: 03/08/2025 (Approximate), Expires: 02/05/2026 [facility] Comment on above: Expected: 03/08/2025 (Approximate), Expires: 02/05/2026 Start: 03-08-2025 End: 02-05-2026 Triiodothyronine (T3) Free [Mass/volume] in Serum or Plasma T3, free Lab Routine Other specified hypothyroidism Expected: 03/08/2025 (Approximate), Expires: 02/05/2026 [facility] Comment on above: Expected: 03/08/2025 (Approximate), Expires: 02/05/2026 Start: 03-08-2025 End: 02-05-2026 Urinalysis complete panel - Urine Urinalysis with reflex microscopic (clean catch) Lab Routine Asymptomatic microscopic hematuria Expected: 03/08/2025 (Approximate), Expires: 02/05/2026 [facility] Work Phone: Comment on above: Expected: 03/08/2025 (Approximate), Expires: 02/05/2026 Start: 03-01-2025 Influenza vaccination Influenza Vacc ine (#1) [facility] Start: 02-04-2025 End: 02-04-2026 CBC W Auto Differential panel - Blood CBC and differential Lab Routine Primary hypertension Other specified hypothyroidism Pre-diabetes Expected: 02/04/2025 (Approximate), Expires: 02/04/2026 [facility] Work Phone: Comment on above: Expected: 02/04/2025 (Approximate), Expires: 02/04/2026 Start: 02-04-2025 End: 02-04-2026 Comprehensive metabolic 2000 panel - Serum or Plasma Comprehensive metabolic panel Lab Routine Primary hypertension Morbid obesity (CMS-HCC) Pre-diabetes Expected: 02/04/2025 (Approximate), Expires: 02/04/2026 [facility] Comment on above: Expected: 02/04/2025 (Approximate), Expires: 02/04/2026 Start: 02-04-2025 End: 02-04-2026 Hemoglobin A1c/Hemoglobin.total in Blood Hemoglobin A1c Lab Routine Pre-diabetes Expected: 02/04/2025 (Approximate), Expires: 02/04/2026 [facility] Comment on above: Expected: 02/04/2025 (Approximate), Expires: 02/04/2026 Start: 02-04-2025 End: 02-04-2026 Lipid 1996 panel - Serum or Plasma Lipid panel Lab Routine Other specified hypothyroidism Pre-diabetes Expected: 02/04/2025 (Approximate), Expires: 02/04/2026 [facility] Comment on above: Expected: 02/04/2025 (Approximate), Expires: 02/04/2026 Start: 02-04-2025 End: 02-04-2026 Microalbumin/Creatinine panel in random Urine Microalbumin / creatinine, urine ratio Lab Routine Primary hypertension Pre-diabetes Expected: 02/04/2025 (Approximate), Expires: 02/04/2026 [facility] Comment on above: Expected: 02/04/2025 (Approximate), Expires: 02/04/2026 Start: 02-04-2025 End: 02-04-2026 Thyrotropin [Units/volume] in Serum or Plasma TSH Lab Routine Other specified hypothyroidism Expected: 02/04/2025 (Approximate), Expires: 02/04/2026 [facility] Comment on above: Expected: 02/04/2025 (Approximate), Expires: 02/04/2026 Start: 02-04-2025 End: 02-04-2026 Urinalysis complete panel - Urine Urinalysis with reflex microscopic (clean catch) Lab Routine Primary hypertension Pre-diabetes Expected: 02/04/2025 (Approximate), Expires: 02/04/2026 [facility] Comment on above: Expected: 02/04/2025 (Approximate), Expires: 02/04/2026 Start: 02-04-2025 End: 02-04-2025 Patient encounter procedure [facility] Comment on above: Primary hypertension (Primary Dx); Morbid obesity ([facility]); Other specified hypothyroidism ; Medicare annual wellness visit, subsequent; Pre-diabetes; Body mass index (BMI) 40.0-44.9, adult ([facility]) Start: 11-03-2024 Medicare Annual Well ness (AWV) Medicare Annual Wellness (AWV) [facility] Start: 10-01-2024 Influenza vaccination Influenza Vacc ine (#1) [facility] Comment on above: Postponed from 03/01 (Patient Refused) Start: 09-30-2024 Pneumococcal Vaccine : 65+ Years (1 of 1 - PCV) Pneumococcal Vaccine: 65+ Years (1 of 1 - PCV) [facility] Comment on above: Postponed from 10/28 (Patient Refused) Start: 09-29-2024 Screening for malign ant neoplasm of breast Mammogram [facility] Comment on above: Postponed from 10/28 (Patient Refused) Start: 08-11-2024 End: 08-11-2024 Patient encounter procedure 08/11/2024 2:30 PM EST Office Visit [facility] [address] [place] [address] Desi Chamberlain PA [address] [place] [address] Neoplasm of uncertain behavior of breast, right [facility] Comment on above: Neoplasm of uncertai n behavior of breast, right Start: 08-06-2024 End: 08-06-2024 Patient encounter procedure 08/06/2024 9:00 AM EST Office Visit [facility] [address] [place] [address] Lucille Oviedo, TODD [address] [place] [address] Arrived [facility] Comment on above: Arrived Start: 03-01-2024 Influenza vaccination Influenza Vacc ine (#1) [facility] Start: 10-28-2005 Pneumococcal Vaccine : 65+ Years (1 of 1 - PCV) Pneumococcal Vaccine: 65+ Years (1 of 1 - PCV) [facility] Start: 1995 Screening for malign ant neoplasm of breast Mammogram [facility] Start: 1955 Screening for malign ant neoplasm of colon [facility] Payers Date Payer Category Payer Medicare (Managed Care) [facility] [id number] 2023 Medicare 2023 Unknown [id number] 1959 Medicare [id number] 1955 Unknown [id number] 1955 Unknown [id number] 1955 Unknown [id number] 196 1955 Unknown [id number] 1955 Unknown [id number] 1955 Unknown [id number] 1955 Unknown [id number] Social History Date Type Detail Facility Start: 10-01-2023 Tobacco smoking stat [facility] Ex-smoker [facility] History of tobacco use Current smoker [facility] History of tobacco use Cigarette Smoker [facility] History of tobacco use Passive smoker [facility] Start: 10-01-2023 Tobacco use and exposure Smokeless t obacco non-user [facility] Start: 02-04-2024 End: 02-04-2025 Alcoholic beverage intake Current drinker of alcohol (finding) [facility] Start: 02-04-2024 End: 02-04-2025 History of Social function [facility] Start: 02-04-2024 End: 02-04-2025 Tobacco use panel [facility] Start: 10-01-2023 Alcohol Comment OCCASSIONAL [facility] Start: 1955 Sex assigned at Not on file [facility] Functional Status Date Assessment Result Facility 02-04-2025 Patient Health [facility] ionnaire 2 item (PHQ-2) [Reported] [facility] History of Present illness Narrative 02-04-2025 TEJ MANN - 02/04/2025 9:00 AM Allie Castillo NP - 02/04/2025 9:00 AM Allie Castillo NP - 02/04/2025 6:10 AM Allie Castillo NP - 02/04/2025 6:10 AM EDT Note Date & Type Note Facility 02-04-2025 History of Presen t illness Narrative Swelling in both legs-every summer Images from the original note were not included. Seth Barrientos is a 69 y.o. female presents with chief complaint of Medicare Annual Wellness Visit Initial HPI: Diet:off and on balanced, dairy is good Activity: no Mental Health Concerns: no Falls in the last year: no fall Still driving: yes Do you pay your bills: yes Any hearing problems: no Any Vision problems: glasses, recent cataract surgery, also sees retina specialist Any Hospitalizations in the last year: no Specialist: retina specialist, eye doctor HCPOA/Living Will: yes Concerns: none SUBJECTIVE: MEDICATIONS: No current outpatient medications ALLERGIES: No Known Allergies REVIEW OF SYMPTOMS: Review of Systems Constitutional: Negative for appetite change, chills and fever. HENT: Negative for congestion, ear pain and sore throat. Eyes: Negative for pain, discharge, redness and visual disturbance. Respiratory: Positive for shortness of breath. Negative for cough and wheezing. Cardiovascular: Positive for leg swelling. Negative for chest pain and palpitations. Gastrointestinal: Negative for abdominal pain, blood in stool, constipation, diarrhea, nausea and vomiting. Genitourinary: Negative for difficulty urinating, dysuria and frequency. Musculoskeletal: Negative for arthralgias, back pain, joint swelling and myalgias. Skin: Negative for rash and wound. Neurological: Negative for dizziness, tremors, seizures, syncope and headaches. Post herpetic pain under left breast Psychiatric/Behavioral: Negative for behavioral problems, self-injury and suicidal ideas. The patient is not nervous/anxious. Hematological: Does not bruise/bleed easily. Endocrine: Negative for polydipsia, polyphagia and polyuria. Allergic/Immunologic: Negative for environmental allergies and food allergies. PAST MEDICAL HISTORY Past Medical History: Diagnosis Date Shinglbuffy Past Surgical History: Procedure Laterality Date TOTAL KNEE ARTHROPLASTY Bilateral family history is not on file. OBJECTIVE: Visit Vitals Wt 295 lb 12.8 oz BMI 44.98 kg/m Smoking Status Former BSA 2.54 m Physical Exam Vitals and nursing note reviewed. Constitutional: General: She is not in acute distress. Appearance: Normal appearance. HENT: Head: Normocephalic and atraumatic. Right Ear: External ear normal. Left Ear: External ear normal. Nose: Nose normal. Mouth/Throat: Mouth: Mucous membranes are moist. Eyes: Extraocular Movements: Extraocular movements intact. Conjunctiva/sclera: Conjunctivae normal. Neck: Vascular: No carotid bruit. Cardiovascular: Rate and Rhythm: Normal rate and regular rhythm. Pulses: Normal pulses. Heart sounds: Normal heart sounds. Pulmonary: Effort: Pulmonary effort is normal. Breath sounds: Normal breath sounds. Abdominal: General: Bowel sounds are normal. There is no distension. Palpations: Abdomen is soft. There is no mass. Tenderness: There is no abdominal tenderness. Musculoskeletal: General: Normal range of motion. Cervical back: Normal range of motion and neck supple. Right lower leg: Edema present. Left lower leg: Edema present. Comments: 1+ bilat pedal and pre tibial edema Lymphadenopathy: Cervical: No cervical adenopathy. Skin: General: Skin is warm and dry. Capillary Refill: Capillary refill takes 2 to 3 seconds. Findings: No rash. Neurological: General: No focal deficit present. Mental Status: She is alert and oriented to person, place, and time. Psychiatric: Mood and Affect: Mood normal. Behavior: Behavior normal. Thought Content: Thought content normal. Judgment: Judgment normal. ASSESSMENT AND PLAN: No follow-ups on file. Problem List Items Addressed This Visit Primary hypertension - Primary Hx of this, no medications Relevant Orders CBC and differential Comprehensive metabolic panel Urinalysis with reflex microscopic (clean catch) Microalbumin / creatinine, urine ratio Morbid obesity ([facility]) Discussed with patient their BMI (actual, verses recommended). We have also discussed lifestyle modifications: attempts to perform physical activity as chronic conditions allow, also to monitor dietary intake: increasing protein/fruits/veggies and lowering carb intake (unless contraindicated). Limit sodas, juices, and sugary drinks. Relevant Orders Comprehensive metabolic panel Other specified hypothyroidism No current medications for this Relevant Orders CBC and differential Lipid panel TSH Medicare annual wellness visit, subsequent Reviewed Ht/Wt/BMI Recommend eye exam yearly Recommend dental exams twice a year Balance work/leisure activities Exercises is recommended most days of the week (appropriate as chronic conditions allow) Follow up yearly and prn Pre-diabetes A1c 5.8% 2023 Relevant Orders CBC and differential Comprehensive metabolic panel Lipid panel Urinalysis with reflex microscopic (clean catch) Microalbumin / creatinine, urine ratio Hemoglobin A1c Body mass index (BMI) 40.0-44.9, adult ([facility]) Breast cancer screening declined Associated Problem(s): Pre-diabetes A1c 5.8% 2023 Associated Problem(s): Medicare annual wellness visit, subsequent Reviewed Ht/Wt/BMI Recommend eye exam yearly Recommend dental exams twice a year Balance work/leisure activities Exercises is recommended most days of the week (appropriate as chronic conditions allow) Follow up yearly and prn Associated Problem(s): Other specified hypothyroidism No current medications for this Associated Problem(s): Morbid obesity ([facility]) Discussed with patient their BMI (actual, verses recommended). We have also discussed lifestyle modifications: attempts to perform physical activity as chronic conditions allow, also to monitor dietary intake: increasing protein/fruits/veggies and lowering carb intake (unless contraindicated). Limit sodas, juices, and sugary drinks. Associated Problem(s): Primary hypertension Hx of this, no medications documented in this encounter [facility] History of Present illness Narrative 08-11-2024 ELVA Doe - 08/11/2024 2:30 PM EST Note Date & Type Note Facility 08-11-2024 History of Presen t illness Narrative Skin Check Location: Patient requests a skin examination from the waist up Dermatologic history: no history of skin cancer, no history of atypical moles, no family history of melanoma Lesions: Location: Right breast Duration: Probably about a year Quality: Asymptomatic Modifying factors: None Associated symptoms: Brown/clark raised bumps Treatments: Henrietta oil, did shrink/soften lesions New patient, referred by Lucille Oviedo APRN CALL CENTER TEAM LEADER-C All pertinent medical history, medications, and allergies were reviewed. General Exam: alert, oriented to person, place, and time, normal affect, well appearing A complete skin exam was offered, pt declined. Areas not examined despite medical recommendation: From the waist down Scalp, Examined Head, Face Examined Neck Examined Chest Examined Back Examined Abdomen Examined Right arm Examined Left arm Examined Hands Examined Digits,nails: Examined 1. Seborrheic keratosis Stuck on verrucous, clark-brown papules and plaques. Patient was counseled regarding these benign growths. Removal is normally not necessary, but they may be removed if they are symptomatic or for cosmetic reasons. 2. Lentigo simplex Scattered clark macules in sun-exposed areas. The patient was informed that lentigines are benign pigmented lesions that occur on sun-exposed and sun-damaged skin. No treatment is necessary. Recommended regular use of broad spectrum sunscreen SPF 30 or higher 3. Capillary angioma Scattered monroe-red papule(s). The patient was informed that angiomas are benign growths on the the skin. No treatment is necessary. 4. Melanocytic nevus of trunk Scattered benign appearing, regular brown to light brown melanocytic papules and macules with similar morphology Counseled regarding these benign growths. Rarely, a nevus can develop into malignant melanoma, so any changing nevi should be promptly re-evaluated. 5. Epidermal inclusion cyst Mid Back Subcutaneous, mobile nodule with central oxidation Patient was counseled regarding cysts. Although benign, cysts often slowly enlarge and can occasionally become inflamed. Discussed the only way to definitively diagnose the lesion would be to have it removed and tested. Discussed treatment options including observation vs. excision. Patient elected for observation. Notify office if lesion is enlarging or becomes symptomatic. 6. Milia Head - Anterior (Face) Small white or yellow papules. Reassure, benign. Discussed milia may self resolve or they can be removed for a cosmetic fee. Next Visit: prn for any new/changing lesions documented in this encounter [facility] History of Present illness Narrative 08-06-2024 Lucille Oviedo, TODD - 08/06/2024 9:25 AM Irineo Oviedo, TODD - 08/06/2024 9:15 AM Irineo Oviedo, TODD - 08/06/2024 9:00 AM EST Note Date & Type Note Facility 08-06-2024 History of Presen t illness Narrative Associated Problem(s): Neoplasm of uncertain behavior of breast, right Two moles on lower aspect of left breast. Clark in color. Raised. black spots in center. Abnormal shape and edges. Pencil eraser in size. Will send referral to dermatology for further evaluation and treatment. Associated Problem(s): Primary hypertension (CMS/HCC) Currently not taking any medication BP in office 130/80. States BP Maximum at home is 140 SBP. States average is less than 130/90. Provided BP log- did not bring with her to visit. Images from the original note were not included. Subjective Patient ID: Seth Barrientos is a 68 y.o. female who presents for Follow-up. HPI Offers no complaints today. Declines lab work today- all labs from 09/2023 reviewed in thorough detail with patient. She states she will consider labs at next OV. HTN: Currently not taking any medication BP in office 130/80. States BP Maximum at home is 140 SBP. States average is less than 130/90. Provided BP log- did not bring with her to visit. Two moles on lower aspect of left breast. Raised, black spots in center. Abnormal shape and edges. Pencil eraser in size. Will send referral to dermatology for further evaluation and treatment. Review of Systems Constitutional: Negative for activity change, appetite change, chills, diaphoresis, fatigue, fever and unexpected weight change. HENT: Negative for congestion, ear pain, rhinorrhea, sinus pressure, sinus pain, sneezing, sore throat, trouble swallowing and voice change. Eyes: Negative for visual disturbance. Respiratory: Negative for cough, chest tightness, shortness of breath and wheezing. Cardiovascular: Negative for chest pain, palpitations and leg swelling. Gastrointestinal: Negative for abdominal distention, abdominal pain, blood in stool, constipation, diarrhea and vomiting. Genitourinary: Negative for decreased urine volume, dysuria, flank pain, frequency, hematuria and urgency. Musculoskeletal: Negative for arthralgias, gait problem, joint swelling and myalgias. Skin: Negative for rash. Neurological: Negative for dizziness, tremors, syncope, weakness, light-headedness and headaches. Psychiatric/Behavioral: Negative for decreased concentration and suicidal ideas. The patient is not nervous/anxious. Hematological: Does not bruise/bleed easily. Endocrine: Negative for cold intolerance, heat intolerance, polydipsia, polyphagia and polyuria. Objective Physical Exam Vitals reviewed. Constitutional: Appearance: Normal appearance. HENT: Right Ear: Tympanic membrane normal. Left Ear: Tympanic membrane normal. Nose: Nose normal. Mouth/Throat: Mouth: Mucous membranes are moist. Pharynx: Oropharynx is clear. Eyes: Pupils: Pupils are equal, round, and reactive to light. Cardiovascular: Rate and Rhythm: Normal rate and regular rhythm. Pulses: Normal pulses. Heart sounds: Normal heart sounds. Pulmonary: Effort: Pulmonary effort is normal. Breath sounds: Normal breath sounds. Abdominal: General: Abdomen is flat. Bowel sounds are normal. Palpations: Abdomen is soft. Skin: Capillary Refill: Capillary refill takes less than 2 seconds. Findings: Lesion present. Comments: Two moles on lower aspect of left breast. Clark in color. Raised. black spots in center. Abnormal shape and edges. Pencil eraser in size. Will send referral to dermatology for further evaluation and treatment. Neurological: Mental Status: She is alert and oriented to person, place, and time. Assessment/Plan Problem List Items Addressed This Visit Primary hypertension ([facility]) - Primary Currently not taking any medication BP in office 130/80. States BP Maximum at home is 140 SBP. States average is less than 130/90. Provided BP log- did not bring with her to visit. Neoplasm of uncertain behavior of breast, right Two moles on lower aspect of left breast. Clark in color. Raised. black spots in center. Abnormal shape and edges. Pencil eraser in size. Will send referral to dermatology for further evaluation and treatment. documented in this encounter [facility] Instructions 08-06-2024 Patient Instructions Note Date & Type Note Facility 08-06-2024 Instructions Lucille Oviedo NP - 08/06/2024 9:00 AM EST Referral sent to Dermatology they will call you. If you don't hear from them in 2 weeks, call my office! documented in this encounter [facility] Evaluation note Note Date & Type Note Facility Evaluation note Diagnosis Post herpetic neuralgia (CMS/HCC)- Primary Herpes zoster with other nervous system complications Primary hypertension (CMS/HCC) Unspecified essential hypertension Other specified hypothyroidism (CMS/HCC) Screening for hyperlipidemia Screening for lipoid disorders Screening for diabetes mellitus Post herpetic neuralgia (CMS/HCC)- Primary Herpes zoster with other nervous system complications Primary hypertension (CMS/HCC) Unspecified essential hypertension Medicare annual wellness visit, subsequent Post herpetic neuralgia (CMS/HCC)- Primary Herpes zoster with other nervous system complications Primary hypertension (CMS/HCC)- Primary Unspecified essential hypertension Neoplasm of uncertain behavior of breast, right documented in this encounter [facility] Evaluation note Note Date & Type Note Facility Evaluation note Diagnosis Post herpetic neuralgia (CMS/HCC)- Primary Herpes zoster with other nervous system complications Primary hypertension (CMS/HCC) Unspecified essential hypertension Other specified hypothyroidism (CMS/HCC) Screening for hyperlipidemia Screening for lipoid disorders Screening for diabetes mellitus Post herpetic neuralgia (CMS/HCC)- Primary Herpes zoster with other nervous system complications Primary hypertension (CMS/HCC) Unspecified essential hypertension Medicare annual wellness visit, subsequent Post herpetic neuralgia (CMS/HCC)- Primary Herpes zoster with other nervous system complications Primary hypertension (CMS/HCC)- Primary Unspecified essential hypertension Neoplasm of uncertain behavior of breast, right Capillary angioma- Primary Nevus, non-neoplastic Seborrheic keratosis Lentigo simplex Other dyschromia Melanocytic nevus of trunk Benign neoplasm of skin of trunk, except scrotum Epidermal inclusion cyst Sebaceous cyst Milia Sebaceous cyst documented in this encounter [facility] Evaluation note Note Date & Type Note Facility Evaluation note Diagnosis Post herpetic neuralgia- Primary Herpes zoster with other nervous system complications Primary hypertension Unspecified essential hypertension Other specified hypothyroidism Screening for hyperlipidemia Screening for lipoid disorders Screening for diabetes mellitus Post herpetic neuralgia- Primary Herpes zoster with other nervous system complications Primary hypertension Unspecified essential hypertension Medicare annual wellness visit, subsequent Post herpetic neuralgia- Primary 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) Morbid obesity Other specified hypothyroidism Pre-diabetes Other abnormal glucose Body mass index (BMI) 40.0-44.9, adult ([facility]) Breast cancer screening declined documented in this encounter [facility] Evaluation note Note Date & Type Note Facility Evaluation note Diagnosis Post herpetic neuralgia- Primary Herpes zoster with other nervous system complications Primary hypertension Unspecified essential hypertension Other specified hypothyroidism Screening for hyperlipidemia Screening for lipoid disorders Screening for diabetes mellitus Post herpetic neuralgia- Primary Herpes zoster with other nervous system complications Primary hypertension Unspecified essential hypertension Medicare annual wellness visit, subsequent Post herpetic neuralgia- Primary 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) Morbid obesity Other specified hypothyroidism Pre-diabetes Other abnormal glucose Body mass index (BMI) 40.0-44.9, adult ([facility]) Breast cancer screening declined Other specified hypothyroidism- Primary Asymptomatic microscopic hematuria documented in this encounter [facility] Reason for visit Narrative Consultation (Routine) - Closed Note Date & Type Note Facility Reason for visit Narrative Specialty Diagnoses / Procedures Referred By Luis [place] t Referred To Contact Dermatology Diagnoses Neoplasm of uncertain behavior of breast, right Procedures CO OFFICE/OUTPATIENT [facility] 60 MINUTES Lucille Oviedo NP [address] [place] [address] Phone: tel: fax: Mirta Guerra MD [address] [place] [address] Phone: tel: fax: Referral ID Status Reason Start Date Expiration Date V isits Requested Visits Authorized [id number] Closed Specialty Services Required 08/06/2024 02/02/2025 1 1 [facility] Summary Purpose Family History No Family History Records FoundNo Family History Records FoundNo Family History Records Found Advance Directives No Advanced Directives Records FoundNo Advanced Directives Records FoundNo Advanced Directives Records Found Additional Source Comments INFORMATION SOURCE (unrecogn ized section and content) DATE CREATED AUTHOR 11/12/2022 [facility] DATE CREATED AUTHOR AUTHOR'S ORGANIZ ATION 12/25/2023 [facility] DATE CREATED AUTHOR AUTHOR'S ORGANIZ ATION 02/06/2025 [facility] d[facility] Specialists EPIC Care Teams (unrecognized sec tion and content) Nitroglycerin Separator Operator Relationship Specialty Start Date End Date David Abbott MD [address] [place] [phone] PCP - [facility] 07/01/23 David Abbott MD [address] [place] [address] PCP - General Family Medicine 01/29/24 Lucille Oviedo NP [address] [place] [phone] Nurse Practitioner Family Medicine 01/29/24 Nitroglycerin Separator Operator Relationship Specialty Start Date End Date David Abbott MD [address] [place] [phone] PCP - [facility] 07/01/23 David Abbott MD [address] [place] [phone] PCP - General Family Medicine 01/29/24 Lucille Oviedo NP [address] [place] [address] Nurse Practitioner Family Medicine 01/29/24 Nitroglycerin Separator Operator Relationship Specialty Start Date End Date David Abbott MD [address] [place] [address] PCP - [facility] 07/01/23 David Abbott MD [address] [place] [phone] PCP - General Family Medicine 01/29/24 Lucille Oviedo NP [address] [place] [address] Nurse Practitioner Family Medicine 01/29/24 Nitroglycerin Separator Operator Relationship Specialty Start Date End Date David Abbott MD [address] [place] [phone] PCP - [facility]oted 07/01/23 David Abbott MD [address] [place] [phone] PCP - General Family Medicine 01/29/24 Lucille Oviedo NP [address] [place] [address] Nurse Practitioner Family Medicine 01/29/24 Nitroglycerin Separator Operator Relationship Specialty Start Date End Date David Abbott MD [address] [place] [phone] PCP - [facility]oted 07/01/23 David Abbott MD [address] [place] [address] PCP - General Family Medicine 01/29/24 Lucille Oviedo NP [address] [place] [address] Nurse Practitioner Family Medicine 01/29/24 Nitroglycerin Separator Operator Relationship Specialty Start Date End Date David Abbott MD [address] [place] [phone] PCP - [facility]oted 07/01/23 David Abbott MD [address] [place] [phone] PCP - General Family Medicine 01/29/24 Lucille Oviedo NP [address] [place] [phone] Nurse Practitioner Family Medicine 01/29/24 Nitroglycerin Separator Operator Relationship Specialty Start Date End Date David Abbott MD [address] [place] [address] PCP - [facility]oted 07/01/23 David Abbott MD [address] [place] [address] PCP - General Family Medicine 01/29/24 Lucille Oviedo NP [address] [place] [address] Nurse Practitioner Family Medicine 01/29/24 Nitroglycerin Separator Operator Relationship Specialty Start Date End Date David Abbott MD [address] [place] [address] PCP - Devoted 07/01/23 David Abbott MD [address] [place] [address] PCP - General Family Medicine 01/29/24 Lucille Oviedo NP [address] [place] [address] Nurse Practitioner Family Medicine 01/29/24 Reason for Visit (unrecogniz ed section and content) Reason Comments Follow-up Reason Comments Medicare Annual Wellness Visit Initial FOR RECORDS PERTAINING TO PATIENTS WHO ARE [...] BE BASED ON THE PRIMARY CLINICAL RECORDS. [employer] provides no warranty or guarantee of the accuracy or completeness of information in this document.
[2025-03-05 13:12] LABS: Glucose Urine UA NEGATIVE (NEGATIVE)
[2025-03-05 13:19] LABS: Free T3 2.85 pg/mL (2.18-3.98); Thyroid Stimulating Hormone 4.206 uIU/mL (0.358-3.740)
[2025-03-05 14:37] LABS: Cast Seen? NONE SEEN #/LPF (NONE SEEN); Crystals Seen? None Seen #/HPF (None Seen); Urine Culture Indicated ALREADY ORDERED
== END 2025-03-05 12:27 | disposition home or self-care (01) ==
LOC: LAB 12:27
PROVIDERS: PCP Nurse Practitioner; Visit Provider Nurse Practitioner
DX: R31.21 Asymptomatic microscopic hematuria (principal); E03.8 Other specified hypothyroidism
CPT/HCPCS: 36415; 81001; 84439; 84443; 84481; 87086

== ENCOUNTER 2025-06-17 10:14 | Outpatient (OUT) | payer OTHER, SELFPAY ==
--- OUTSIDE RECORDS SUMMARY | 2025-06-17 10:18 | XMS_ITS | Clinical Summary ---
Author Organization [facility] Address [address] [place] [address] Care Team Providers Care Ammunition And Explosives Handler Name Role Phone David Swain MD Unavailable Lucille Oviedo NP Unavailable [phone] David Swain MD Primary Care Provider [phone] Allergies Active AllergyReactionsCriticalityNoted DateCommentsValdecoxibAnxietyLow 02/04/2025 Medications No known medications Active Problems ProblemNoted DateDiagnosed DateAsymptomatic microscopic vaqpsidja04/08/2025 Pre-/07/2025 Assessment & Plan (02/04/2025 6:10 AM EDT): A1c 5.8% 2023 Body mass index (BMI) 40.0-44.9, adult02/04/2025reast cancer screening declined 02/04/2025Neoplasm of uncertain behavior of breast, right08/06/2024 Assessment & Plan (08/06/2024 9:25 AM EST): Two moles on lower aspect of left breast. [place] in color. Raised. black spots in center. Abnormal shape and edges. Pencil eraser in size. Will send referral to dermatology for further evaluation and treatment. Medicare annual wellness visit, livlotqyat22/06/2024 Assessment & Plan (02/04/2025 6:10 AM EDT): [...] questions and concerns addressed and answered. Primary wyhijmwvpeli15/02/2024 Assessment & Plan (02/04/2025 6:08 AM EDT): [...] and follow up as clinically indicated. Morbid firpcwm2010/01/2023 Assessment & Plan (02/04/2025 6:08 AM EDT): Discussed with patient their BMI (actual, verses recommended). We have also discussed lifestyle modifications: attempts to perform physical activity as chronic conditions allow, also to monitor dietary intake: increasing protein/fruits/veggies and lowering carb intake (unless contraindicated). Limit sodas, juices, and sugary drinks. Other specified viywbmviioevoh94/02/2024 Assessment & Plan (02/04/2025 6:09 AM EDT): No current medications for this Assessment & Plan (02/04/2024 9:53 AM EDT): Currently not on any medication Last TSH WNL Assessment & Plan (10/02/2023 5:18 PM EDT): Used to be on synthyroid. Not using it anymore. Check TSH/T4 Post herpetic vagdbbhww58/02/2024 Assessment & Plan (02/04/2024 9:55 AM EDT): [...] concerns related to new medications. Resolved Problems ProblemNoted DateDiagnosed DateResolved DateScreening for hyperlipidemia Assessment & Plan (10/02/2023 5:17 PM EDT): Screen for HLD. Screening for diabetes ytdcxjzo45 Assessment & Plan (10/02/2023 5:17 PM EDT): Screen for T2 DM . Family History RelationNameStatusCommentsFatherDeceasedMotherAlive Social History Tobacco UseTypesPacks/DayYears UsedDateSmoking Tobacco: FormerCigarettesPassive Smoke Exposure: PastSmokeless Tobacco: Never Tobacco Cessation:Counseling Given: Not Answered Alcohol UseStandard Drinks/WeekCommentsYes0 (1 standard drink = 0.6 oz pure alcohol)OCCASSIONALPHQ-2AnswerDate RecordedPatient Health Questionnaire-2 Score0 02/04/2025CommentsUnknownSex and Gender InformationValueDate RecordedSex Assigned at BirthNot on fileLegal OspLsibmb21/15/2023 7:25 PM EDTGender Identity Not on fileSexual OrientationNot on file Last Filed Vital Signs Vital SignReadingTime TakenCommentsBlood Nctagnxn432/80002/04/2025 9:08 AM EDT Vmpbv8977/07/2025 9:08 AM XTPUmlsoywqbpc48.9 ??C (98.5 ??F)02/04/2025 9:08 AM EDTRespiratory Uiqx328802/04/2025 9:08 AM EDTOxygen Oymcgkuxmk32%02/04/2025 9:08 AM EDTInhaled Oxygen Concentration--Jooykl750 kg (295 lb 12.8 oz)02/04/2025 9:08 AM RUNRsqqbj424.7 cm (5' 8 )08/06/2024 8:53 AM ESTBody Mass Index44.98008/06/2024 8:53 AM EST Plan of Treatment Health MaintenanceDue DateLast DoneCommentsCT Jotaucbbpawr83/30/1956FIT-DNA 1955FIT1955FOBT1955 6310Mehhxhyssoerj32/30/1956OVID-19 Vaccine ( season)2025Influenza Vaccine (#1)03/01/20258722Dkwgyjjcg98/07/2026 02/04/2025 (Patient Refused)Medicare Annual Wellness (AWV), 11/04/2023, 11/04/2023neumococcal Vaccine: 65+ Years (1 of 1 - PCV)02/04/2026 Postponed from 10/28/2005 (Patient Refused)Jwafambthic92 Colorectal Cancer Yqfoghcyj07/01/2029 Insurance Care Teams Team MemberRelationshipSpecialtyStart DateEnd Date David Swain MD [address] [place] [address] PCP - [facility]07/01/23 David Swain MD PCP - GeneralFamily Medicine01/29/24 Lucille Oviedo NP Nurse PractitionerFamily Medicine01/29/24
--- OUTSIDE RECORDS SUMMARY | 2025-06-17 10:18 | XMS_ITS | Clinical Summary ---
Author Organization [facility] Address [id number] [address] [place] [address] Care Team Providers Care Nutrition Educator Name Role Phone Unavailable Primary Care Provider Unavailabl e Social History Tobacco UseTypesPacks/DayYears UsedDateSmoking Tobacco: Never AssessedChildcare AnswerDate RyotbftdDndkhgqzhNzbckhj92/12/2019EmploymentAnswerDate Recorded HtamckynlnOxbyxwa10/12/2019CommentsUnknownSex and Gender Information ValueDate RecordedSex Assigned at BirthNot on fileLegal TglEvcveq65/06/2015 11:39 AM EDTGender IdentityNot on fileSexual OrientationNot on file Plan of Treatment Not on file Medical Devices Not on file
[2025-06-17 10:53] LABS: Glucose Urine UA NEGATIVE (NEGATIVE)
[2025-06-17 11:12] LABS: Cast Seen? NONE SEEN #/LPF (NONE SEEN); Crystals Seen? None Seen #/HPF (None Seen); Urine Culture Indicated ALREADY ORDERED
== END 2025-06-17 10:15 | disposition home or self-care (01) ==
LOC: LAB 10:16
PROVIDERS: PCP Nurse Practitioner; Visit Provider Nurse Practitioner
DX: R31.21 Asymptomatic microscopic hematuria (principal)
CPT/HCPCS: 81001; 87086

== ENCOUNTER 2025-06-29 11:22 | Outpatient (OUT) | payer OTHER, SELFPAY ==
--- OUTSIDE RECORDS SUMMARY | 2025-06-29 11:25 | XMS_ITS | CCD ---
Author Organization [facility] Inform ion Partnership [facility] Care Team Providers Care Offset Platemaker Name Role Phone DR DAVID ABBOTT Primary Care Unavailable PAY ., DR TOLENTINO Admitting Unavailable PAY ., DR TOLENTINO Attending Unavailable ELENA, DR MIRANDA Forrest Consulting Unavailable PAY ., DR TOLENTINO Consulting Unavailable ESTELLE CHU Consulting Unavailable Papo JUNG, Felix Moran Attending Unavailable Papo JUNG, Felix Moran Attending Unavailable Papo JUNG, Felix Moran Attending Unavailable David Abbott MD Unavailable Ivelisse BROOKS, Lucille Unavailable David Abbott MD Primary Care Provider Ivelisse POLICY ADVISER, Lucille Unavailable LUCILLE OVIEDO Attending UnavailDESI Leyva Attending Unavailable LUCILLE OVIEDO Referring UnavailMADELEINE Reed Attending Unavailable David Abbott MD Primary Care Provider Madeleine Castillo Attending Provider Madeleine Castillo Attending Unavailable Madeleine Castillo Admitting Unavailable Allergies Allergy ClassificationReported Allergen(s)Allergy TypeDate of OnsetReaction(s) Facility (1 source)[facility]ibD[facility] (5 sources)valdecoxibDrug [id number] Healthcare (1 source)valdecoxibDrug Myfxcwa12-81-5497WlfvnllcdMercy Health [facility] Hospital Repository Medications Current Medications MedicationDrug Class(es)DatesSig (Normalized)Sig (Original)cyclobenzaprine hydrochloride 10 mg oral tablet (1 source)Muscle RelaxantStart: 31-65-7318xhig 1 tablet by mouth three times dailymethylPREDNISolone 4 mg oral tablet (1 source)CorticosteroidStart: 69-69-4506twqt 1 tablet by mouth oncevalACYclovir 1000 mg oral tablet (1 source)Herpesvirus Nucleoside Analog DNA Polymerase Inhibitor, Herpes Simplex Virus Nucleoside Analog DNA Polymerase Inhibitor, Herpes Zoster Virus Nucleoside Analog DNA Polymerase InhibitorStart: 09-06-2023 Problems Active Problems Problem ClassificationProblemDateDocumented DateEpisodic/ChronicCardiac dysrhythmias (1 source)Tachycardia; Translations: [Tachycardia, unspecified]09-06-2023 EpisodicDiabetes mellitus without complication (7 sources)Prediabetes; Translations: [Prediabetes]Onset: EpisodicEssential hypertension (16 sources)Essential hypertension; Translations: [Essential (primary) hypertension]Onset: 517693-80-2563WmllctiHkiqkbyvnkwhy symptoms and ill- defined conditions (2 sources)Asymptomatic microscopic hematuria; Translations: [Asymptomatic microscopic hematuria]Onset: 497213-44-3013InfwuwdwCvqdz and unspecified benign neoplasm (2 sources)Melanocytic nevus of trunk; Translations: [Melanocytic nevi of trunk] 45-70-2509RhmwiqrsPoxba circulatory disease (2 sources)Spider nevus; Translations: [Nevus, non-neoplastic]34-58-4015Nrmtqpqi Other lower respiratory disease (4 sources)Other forms of dyspnea; Translations: [OTHER FORMS OF DYSPNEA]Onset: 71-81-4020HhwscnidDmjye lower respiratory disease (1 source)Solitary pulmonary nodule; Translations: [SOLITARY PULMONARY NODULE] Onset: 14-22-9192IpxzqixrKgpso nutritional; endocrine; and metabolic disorders (13 sources)Morbid obesity; Translations: [Morbid (severe) obesity due to excess calories]Onset: 550671-52-5652YeuosrrKskks nutritional; endocrine; and metabolic disorders (7 sources)Body mass index 40+ - severely obese; Translations: [Body mass index (BMI) 40.0-44.9, adult]Onset: 371188-44-0349MpwnzfxUwmfx skin disorders (2 sources)Seborrheic keratosis; Translations: [Other seborrheic keratosis] 96-40-9939VcarvpouJxhnm skin disorders (2 sources)Lentigo simplex; 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] 02-35-3954TfrwwaouWmpve skin disorders (2 sources)Epidermoid cyst; Translations: [Epidermal cyst]95-85-2913Lydcfmtf Other skin disorders (2 sources)Milia; Translations: [Epidermal cyst]79-17-5287BzlmvordQefzzeol codes; unclassified (1 source)Localized edema; Translations: [LOCALIZED EDEMA]Onset: 11-12-2022 EpisodicScreening and history of mental health and substance abuse codes (1 source)Personal history of nicotine dependence; Translations: [PERSONAL HISTORY OF NICOTINE DEPEND]Onset: 76-83-3658XnlcxpabMehvmkz disorders (14 sources)Hypothyroidism; Translations: [Other specified hypothyroidism]Onset: 653374-73-5457HggreofKzqtfwhodjaf (1 source)PT NONCOMP OTH MED TX/REG UNS REASN; Translations: [PT NONCOMP OTH MED TX/REG UNS REASN]Onset: 11-12-2022 Past or Other Problems Problem ClassificationProblemDateDocumented DateEpisodic/ChronicMood disorders (11 sources)Mood disordersOnset: 11-04-2023 Resolved: 586311-88-6177Pnmqzdgkb of unspecified nature or uncertain behavior (14 sources)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; 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]Onset: EpisodicOther screening for suspected conditions (not mental disorders or infectious disease) (20 sources)Other specified abnormal findings of blood chemistry; Translations: [Abnormal results of thyroid function studies]Onset: 11-12-2022 Resolved: 757032-90-5882ZsjrolodAcwlw infection (11 sources)Postherpetic neuralgia; Translations: [Other postherpetic nervous system involvement]Onset: 483170-81-5768Gfsahjoa Results Test NameValueInterpretationReference RangeFacilityLaboratory - Chemistry and Chemistry - challengeOrdered By: Madeleine Castillo on 07-22-6736Hyqj T4 [Mass/Vol] 0.91 ng/dL0.76-1.46[facility] HospitalTSH Qn4.206 m[IU]/LHigh 0.358-3.740[facility] HospitalBilirubin Ql (U)NegativeNEGATIVE [facility] HospitalGlucose (U) [Mass/Vol]NegativeNEGATIVEMercy Health Willard HospitalKetones Ql (U)NegativeNEGPremier Health Miami Valley HospitalpH (U)6.0 [pH]5.0-9.0[facility] Hospitalpecific gravity (U) [Rel density]<=1.504Ocelngla0.005-1.025[facility] Urobilinogen Qn (U)0.2 {Edison'U}/dL0.2-1.0[facility] Laboratory - Specimen informationOrdered By: Madeleine Castillo on 03-05-2025 Appearance (U)CLEARCLEARFMemorial Health System Selby General HospitalColor (U)LT. YELLOW YELLOWMercy Health Willard HospitalLaboratory - UrinalysisOrdered By: Madeleine Castillo on 11-00-6903Idgzxizqf esterase Test strip Ql (U)SMALLAbnormalNEGProMedica Fostoria Community HospitalMucus Ql (Urine sed)TRACEAbnormalNONE SEEN [facility] HospitalNitrite Ql (U)NegativeNEGPremier Health Miami Valley HospitalProtein Ql (U)NegativeNEG/TRACEMercy Health Willard HospitalNo Panel InformationOrdered By: Madeleine Castillo on 63-40-3460Nlmp Triiodothyronine2.85 pg/mL2.18-3.98Mer[facility] HospitalUrine BacteriaTRACE #/HPFAbnormalNONE [facility] HospitalUrine Culture ReflexedALREADY ORDEREDMercy Health Willard HospitalUrine Microscopic ReviewYECleveland Clinic Hillcrest HospitalUrine Occult BloodMODERATE AbnormalNEGPremier Health Miami Valley HospitalUrine Other CastsNONE SEEN #/LPFNONE [facility] HospitalUrine Other CrystalsNone Seen #/HPFNone [facility] HospitalUrine RBC0-2 #/HPF0-2FMemorial Health System Selby General HospitalUrine Squamous Epithelial CellsFEW #/LPFAbnormalNONE/RARE [facility] HospitalUrine Transitional Epithelial CellsRARE #/LPF AbnormalNONE SEENMercy Health Willard HospitalUrine WBC5-10 #/HPFAbnormal NONE [facility] HospitalUrine Cultureon 25-73-8428Wevagwir identified Cx Nom (U)<9,000 colonies/ml mixed bacterial skin contaminants 2 Days PERFORMED BY: [facility] [address] [place] [address] PATHOLOGIST TERADATA ARCHITECT VIDYA HARRIS M.D.NormalRockledge Regional Medical Center Physician GroupComment on above: Performed By: #### CUU #### [facility] [address] [place] [address] [place] CBC WITH AUTO DIFFon [id number] ABSOLUTE AUTO 0.1NOMS HealthcareBasophils/100 WBC (Bld)1.1 %0.2 - 2.0 %[facility] Eosinophils/100 WBC (Bld)3.2 %0.9 - 7.0 %[facility] HealthcareErythrocyte distribution width (RBC) [Ratio]15.2 %High11.0 - 15.0 %NOM HealthcareHematocrit (Bld) [Volume fraction]39.2 %36.0 - 48.0 %[facility] HealthcareHemoglobin (Bld) [Mass/Vol] 12.6 g/dL12.0 - 16.0 g/dLNOSainte Genevieve County Memorial HospitalIMMATURE GRANULOCYTES ABS AUTO0.01NOMS HealthcareImmature granulocytes/100 WBC (Bld)0.1 %0.0 - 0.5 %[facility] Interpretation and review of laboratory resultsAbnormalNOSainte Genevieve County Memorial Hospital LYMPHOCYTES ABSOLUTE AUTO1.7NOMS HealthcareLymphocytes/100 WBC (Bld)23.7 %20.5 - 60.0 %NOMChildren'S Mercy NorthlandMCH (RBC) [Entitic mass]26.1 pgLow26.7 - 34.0 pgNOSainte Genevieve County Memorial HospitalMCHC (RBC) [Mass/Vol]32.1 g/dL29.9 - 35.2 g/dLNOSainte Genevieve County Memorial HospitalMCV (RBC) [Entitic vol]81.2 fL81.0 - 99.0 fLNOFL HealthcareMONOCYTES ABSOLUTE AUTO0.6NOMS HealthcareMonocytes/100 WBC (Bld)8.1 %1.7 - 12.0 %NOMS HealthcareNEUTROPHILS ABSOLUTE AUTO4.6NOMS HealthcareNeutrophils/100 WBC (Bld)63.8 %43.0 - 75.0 %NOMS HealthcarePlatelet mean volume (Bld) [Entitic vol]10.3 fL9.5 - 13.5 fLNOMS HealthcareTBH EO #0.2NOMS HealthcareTBH IUF007UQUA HealthcareTBH RBC4.83NOMS HealthcareTBH WBC7.3NOMS HealthcareCLINISYNCNOMS HealthcareBNPon 11-09-2022 Natriuretic peptide B (Bld) [Mass/Vol]1608.0 pg/mLCritically high<=900.0The [facility] Memorial HospitalComment on above:Performed By: #### CMP, HSTROPN, CK, BNP, TSH #### [facility] [address] [place] [address] Dr. Jeremy Mcclure AUTO DIFFon 74-91-9958KWAU #0.1 103/ulNormal0.0-0.1The [facility]Hy[facility] Memorial HospitalComment on above:Performed By: #### CBC #### [facility] [address] [address] [address] Jeremy Romanosophils/100 WBC (Bld)0.7 %Normal0.2-2.0The [facility] Comment on above:Performed By: #### CBC #### [facility] [address] [address] [address] Jeremy Mckeon #0.1 103/ulNormal0.0-0.7The [facility] Memorial HospitalComment on above: Performed By: #### CBC #### [facility] [address] [address] [address] Jeremy Rivasosinophils/100 WBC (Bld)0.7 %Critically low0.9-7.0The [facility]-Hy[facility] Memorial HospitalComment on above:Performed By: #### CBC #### [facility] [address] [place] [address] Dr. Jeremy Rivasrythrocyte distribution width (RBC) [Ratio]15.9 %Critically high 11.0-15.0The [facility] Memorial HospitalComment on above:Performed By: #### CBC #### [facility] [address] [place] [address] Dr. Jeremy SainzHematocrit (Bld) [Volume fraction]40.3 %Jdhtsd18.0-48.0The [facility]Hy[facility] Memorial HospitalComment on above:Performed By: #### CBC #### [facility] [address] [place] [address] Dr. Jeremy SainzHemoglobin (Bld) [Mass/Vol]12.8 g/pRRmhyqu56.0-16.0The [facility] Memorial HospitalComment on above:Performed By: #### CBC #### [facility] [address] [place] [address] Dr. Jeremy SainzIG #0.02 10e3/ulNormal0.00-0.03The [facility] Memorial HospitalComment on above:Performed By: #### CBC #### [facility] [address] [place] [address] Dr. Jeremy SainzIG %0.3 %Normal0.0-0.5The [facility] Memorial HospitalComment on above: Performed By: #### CBC #### [facility] [address] [place] [address] Dr. Jeremy Cordon #1.6 103/ulNormal1.2-3.8The [facility] Memorial HospitalComment on above:Performed By: #### CBC #### [facility] [address] [place] [address] Dr. Jeremy Baezamphocytes/100 WBC (Bld)21.6 %Fifefg18.5-60.0The [facility] Memorial HospitalComment on above:Performed By: #### CBC #### [facility] [address] [place] [address] Dr. Jeremy LouiseUAL DIFF REQNONormalThe [facility] HospitalComment on above: Performed By: #### CBC #### [facility] [address] [place] [address] Dr. Jeremy Oviedo (RBC) [Entitic mass]25.7 pgCritically low26.7-34.0The [facility] Memorial HospitalComment on above:Performed By: #### CBC #### [facility] [address] [place] [address] Dr. Jeremy Baum (RBC) [Mass/Vol]31.8 g/kLGpeypk68.9-35.2The [facility] Memorial HospitalComment on above:Performed By: #### CBC #### [facility] [address] [place] [address] Dr. Jeremy Baum (RBC) [Entitic vol]80.9 fLCritically low81.0-99.0The [facility] HospitalComment on above:Performed By: #### CBC #### [facility] [address] [place] [address] Dr. Jeremy Oh #0.4 103/ulNormal0.3-0.8The [facility] Memorial HospitalComment on above:Performed By: #### CBC #### [facility] [address] [place] [address] Dr. Jeremy Hernandesocytes/100 WBC (Bld)5.3 %Normal1.7-12.0The [facility] Comment on above:Performed By: #### CBC #### [facility] [address] [place] [address] Dr. Jeremy Tian #5.4 103/ulNormal1.4-6.5The [facility] Memorial HospitalComment on above:Performed By: #### CBC #### [facility] [address] [place] [address] Dr. Jeremy Rodriguezutrophils/100 WBC (Bld)71.4 %Iaguxq17.0-75.0The [facility] Memorial HospitalComment on above:Performed By: #### CBC #### [facility] [address] [place] [address] Dr. Jeremy Velizlet mean volume (Bld) [Entitic vol]10.5 fLNormal9.5-13.5The [facility] HospitalComment on above:Performed By: #### CBC #### [facility] [address] [place] [address] Dr. Jeremy SainzPLT279 103/dsNtavor468-765Spk [facility] HospitalComment on above: Performed By: #### CBC #### [facility] [address] [place] [address] Dr. Jeremy SainzRBC4.98 106/ulNormal4.20-5.40The [facility] HospitalComment on above:Performed By: #### CBC #### [facility] [address] [place] [address] Dr. Jeremy SainzWBC7.5 103/ulNormal4.0-11.0The [facility] Memorial HospitalComment on above: Performed By: #### CBC #### [facility] [address] [place] [address] Dr. Jeremy PattonKomarly 28-59-1150LW [Catalytic activity/Vol]103 U/ZBwltlo81-602Twd [facility] HospitalComment on above:Performed By: #### CMP, HSTROPN, CK, BNP, TSH #### [facility] [address] [place] [address] Dr. Jeremy Martins CHEST WO W CONon 54-63-5616ITC CHEST WO W CONEXAMINATION: CTA CHEST WO W CON HISTORY: SHORTNESS [...] Electronically authenticated by: MIRANDA PARKER Date: 2022-11-09 10:04[facility] CenterD-DIMERon 32-17-4340L-DIMER0.64 mg/L FEUCritically high<=0.59 The [facility] Systemment on above:Performed By: #### DDIM ####[facility] [address] [address]Dr. Jeremy Christie- DIMER COMMENTSSEE [facility] on above:Result Comment: Increases in D-Dimer concentration observed with thromboembolic events [...] stress, and generalized hospitalization. Performed By: #### DDIM ####[facility] [address] [address]. Jeremy Orourke URINE PROFILEon 70-37-6677Acepdylvr Ql (U)NegativeNormalNEGATIVEMercer County Community Hospital on above:Performed By: #### ADRIANNA ORONAICRO #### [facility] [address] [place] [address] Dr. Jeremy Branch (U)CLEARNormalCLEARMercy Health St. [facility] HospitalComment on above: Performed By: #### YEYO UMICRO #### [facility] [address] [place] [address] Dr. Jeremy Colon (U)YELLOWNormalYELLOWUniversity Hospitals Elyria Medical Centerment on above: Performed By: #### YEYO UMICRO #### [facility] [address] [place] [address] Dr. Jeremy Casillas micrscopic examination will be performed if indicated. NormalThe [facility]woc HospitalComment on above:Performed By: #### YEYO UMICRO #### [facility] [address] [address] [address] Jeremy SainzGlucose Ql (U)NegativeNormalNEGATIVEMercy Health St. [facility] HospitalComment on above:Performed By: #### YEYO, UMICRO #### [facility] [address] [address] [address] Jeremy SainzHemoglobin Ql (U)MODERATEAbnormalNEGATIVEMercy Health St[facility] Comment on above:Performed By: #### YEYO UMICRO #### [facility] [address] [address] [address] Jeremy SainzKetones Ql (U)NegativeNormalNEGATIVEMercy Health St. [facility] HospitalComment on above:Performed By: #### YEYO UMICRO #### [facility] [address] [place] [address] Dr. Jeremy SainzLEUKOCYTESTRACEAbnormalNEGATIVEMercy Health St. [facility] HospitalComment on above:Performed By: #### YEYO UMICRO #### [facility] [address] [place] [address] Dr. Jeremy SainzNitrite Ql (U)NegativeNormalNEGATIVEMercy Health St. [facility] HospitalComment on above:Performed By: #### YEYO UMICRO #### [facility] [address] [place] [address] Dr. Jeremy SainzpH (U)7.5 [pH]Normal5-9The [facility] Memorial HospitalComment on above: Performed By: #### YEYO UMICRO #### [facility] [address] [place] [address] Dr. Jeremy SainzSPEC GRAVITY1.324Fxpwla4.005-<=1.025The [facility] Memorial HospitalComment on above:Performed By: #### YEYO UMICRO #### [facility] [address] [address] [address] Jeremy SainzUA PROTEINNegativeNormalNEGATIVE/ TRACEThe [facility] Comment on above:Performed By: #### ERUR, UMICRO #### [facility] [address] [address] [address] Jeremy Ahuja MICRO INDINDICATEDNormalThe [facility] Memorial HospitalComment on above: Performed By: #### SKYLAR ROONA #### [facility] [address] [address] [address] Jeremy Iqbalbilinogen Qn (U)1.0 {Edison'U}/dLNormal0.2 - 1.0The [facility] HospitalComment on above:Performed By: #### SKYLAR ORONA #### [facility] [address] [place] [address] Dr. Jeremy Rodriguez 14(COMP METB)on 84-52-2006Jipydsq [Mass/Vol]3.6 g/dLNormal 3.4-5.0The [facility] HospitalComment on above:Performed By: #### CMP, HSTROPN, CK, BNP, TSH #### [facility] [address] [place] [address] Dr. Jeremy SainzAlbumin/Globulin [Mass ratio]1.0 {ratio}NormalThe [facility] Memorial HospitalComment on above:Performed By: #### CMP, HSTROPN, CK, BNP, TSH #### [facility] [address] [place] [address] Dr. Jeremy Douglass [Catalytic activity/Vol]88 U/DOjddtn58-655Rfn [facility] HospitalComment on above:Performed By: #### CMP, HSTROPN, CK, BNP, TSH #### [facility] [address] [place] [address] Dr. Jeremy Thayer [Catalytic activity/Vol]38 U/ALklkdy79-88Pgg [facility] HospitalComment on above:Performed By: #### CMP, HSTROPN, CK, BNP, TSH #### [facility] [address] [place] [address] Dr. Jeremy Douglass gap [Moles/Vol]15.1 mmol/LNormalThe [facility] on above:Performed By: #### CMP, HSTROPN, CK, BNP, TSH #### [facility] [address] [place] [address] Dr. Jeremy SainzAST [Catalytic activity/Vol]23 U/ASajdht95-41Nhm [facility] HospitalComment on above:Performed By: #### CMP, HSTROPN, CK, BNP, TSH #### [facility] [address] [place] [address] Dr. Jeremy SainzBilirubin [Mass/Vol]0.4 mg/dLNormal0.2-1.0The [facility] Comment on above:Performed By: #### CMP, HSTROPN, CK, BNP, TSH #### [facility] [address] [place] [address] Dr. Jeremy SainzCalcium [Mass/Vol]8.8 mg/dLNormal8.5-10.1The [facility] Comment on above:Performed By: #### CMP, HSTROPN, CK, BNP, TSH #### [facility] [address] [place] [address] Dr. Jeremy SainzChloride [Moles/Vol]108 mmol/LCritically axii56-546Olq [facility] HospitalComment on above:Performed By: #### CMP, HSTROPN, CK, BNP, TSH #### [facility] [address] [place] [address] Dr. Jeremy SainzCO2 [Moles/Vol]26.6 mmol/ILrxugz60.0-32.0The [facility] Comment on above:Performed By: #### CMP, HSTROPN, CK, BNP, TSH #### [facility] [address] [place] [address] Dr. Jeremy SainzCreatinine [Mass/Vol]0.97 mg/dLNormal0.55-1.02The [facility] HospitalComment on above:Performed By: #### CMP, HSTROPN, CK, BNP, TSH #### [facility] [address] [place] [address] Dr. Luna ChangEGFR-AF RUSSIAN>60Normal>=60The [facility] HospitalComment on above:Performed By: #### CMP, HSTROPN, CK, BNP, TSH #### [facility] [address] [place] [address] Dr. Jeremy RivasGFR-NON AF TIBIPAIM54 mL/min/1.69g0Ddexihahhw low>=60The [facility] Systemment on above:Performed By: #### CMP, HSTROPN, CK, BNP, TSH #### [facility] [address] [address] [address] Jeremy SainzGlobulin (S) [Mass/Vol]3.6 g/dLNormalThe [facility] HospitalComment on above:Performed By: #### CMP, HSTROPN, CK, BNP, TSH #### [facility] [address] [place] [address] Dr. Jeremy SainzGlucose [Mass/Vol]117 mg/dLCritically nupq56-344Ymq [facility] HospitalComment on above:Performed By: #### CMP, HSTROPN, CK, BNP, TSH #### [facility] [address] [place] [address] Dr. Jeremy SainzPotassium [Moles/Vol]3.7 mmol/LNormal3.5-5.1The [facility] Comment on above:Performed By: #### CMP, HSTROPN, CK, BNP, TSH #### [facility] [address] [place] [address] Dr. Jeremy SainzProtein [Mass/Vol]7.2 g/dLNormal6.4-8.2The [facility] Comment on above:Performed By: #### CMP, HSTROPN, CK, BNP, TSH #### [facility] [address] [place] [address] Dr. Jeremy SainzSodium [Moles/Vol]146 mmol/LCritically ghux415-532Gvg [facility] on above:Performed By: #### CMP, HSTROPN, CK, BNP, TSH #### [facility] [facility] [address] [place] [address] Dr. Jeremy SainzUrea nitrogen [Mass/Vol]11.0 mg/dLNormal7.0-18.0[facility] on above:Performed By: #### CMP, HSTROPN, CK, BNP, TSH #### [facility] [address] [place] [address] Dr. Jeremy Lopez nitrogen/Creatinine [Mass ratio]11.3 mg/mgNoSelect Medical [facility], [facility]Comc.[facility] on above:Performed By: #### CMP, HSTROPN, CK, BNP, TSH #### [facility] [address] [place] [address] Dr. Jeremy Celis, [facility] SENSITIVITYon [id number] pg/mLNormal 4.0-51.3[facility] on above:Result Comment: CUT-OFF POINTS HAVE BEEN ESTABLISHED BASED ON THE FOURTH UNIVERSAL DEFINITIONS OF MYOCARDIAL INFARCTION. THE UPPER REFERENCE LIMIT (URL) OF TROPONIN, DEFINED THE 99TH PERCENTILE OF cTnI DISTRIBUTION IN A REFERENCE POPULATION, HAS BEEN CONFIRMED THE DECISION THRESHOLD FOR PR DIAGNOSIS.Performed By: #### CMP, HSTROPN, CK, BNP, TSH #### [facility] [address] [place] [address] Dr. Jeremy Campoverde 16-66-2329JTO1.659 uIU/mLNormal0.358-3.740[facility] on above:Performed By: #### CMP, HSTROPN, CK, BNP, TSH #### [facility] [address] [place] [address] Dr. Jeremy Kramer [facility] ONLYon 98-67-9098JDZZDTTFWESGTJklfusqdYBBV SEEN [facility]Com[facility] on above:Performed By: #### ABBY ORONARO #### [facility] [address] [place] [address] Dr. Jeremy Cervantes identified Cx Nom (U)NOT INDICATEDNoAdams County Regional [facility] on above:Performed By: #### YEYO UMICRO #### [facility] [address] [place] [address] Dr. Jeremy Del Angel SEENNormalNONE [facility]ENMer[facility] on above:Performed By: #### ERUR, UMICRO #### [facility] [address] [address] [address] Jeremy SainzCrystals LM Nom (Urine sed)NONE SEENNormalNONE SEENThe [facility] HospitalComment on above:Performed By: #### ERUR, UMICRO #### [facility] [address] [address] [address] Luna ChangEpithelial cells LM Ql (Urine sed)FEWAbnormalNONE SEEN /RAREThe [facility] HospitalComment on above:Performed By: #### ERUR, UMICRO #### [facility] [address] [address] [address] Jeremy SainzMUCOUSTRACEAbnormalNONE SEENThe [facility] HospitalComc.[facility] on above:Performed By: #### ERUR, UMICRO #### [facility] [address] [place] [address] Dr. Jeremy SainzYwveqEWD9-75Hwqmlxdh9-1Tan [facility] HospitalComment on above:Performed By: #### ERUR, UMICRO #### [facility] [address] [place] [address] Dr. Jeremy SainzWBC2-5AbnormalNONE SEENMercer County Community Hospital on above: Performed By: #### ERUR, UMICRO #### [facility] [address] [place] [address] Dr. Jeremy SainzXR CHEST 2 Von [id number] CHEST 2 VEXAM: XR CHEST 2 V HISTORY: Shortness of [...] Electronically authenticated by: ESTELLE CHU Date: 2022-11-09 08:34[facility] Vital Signs Date TimeVital SignValuePerforming BaottpilwWcjqvxuq97-60-1267 09:08-0400Body mass index (BMI) [Ratio]44.98 kg/m2Madeleine Castillo POLICY ADVISER Work Phone: [facility] HospitalRcejvuyaoa79-33-4795 09:08-0400Body temperature 98.49 [degF]Madeleine Castillo POLICY ADVISER Work Phone: [facility] HospitalNvppxtrqga84-03-3418 09:08-0400Body nkqode501.17 kgMadeleine Castillo POLICY ADVISER Work Phone: [facility] HospitalAibgudusbp44-17-5518 09:08-0400Diastolic blood gwzdviyk56 mm[Hg]Madeleine Castillo POLICY ADVISER Work Phone: [facility] HospitalPhcdfrvqba08-92-0856 09:08-0400Heart rate80 /min Madeleine Castillo POLICY ADVISER Work Phone: [facility] HospitalVzjbtpljjy85-31-8217 09:08-0400Respiratory rate20 /minMadeleine Castillo POLICY ADVISER Work Phone: [facility] HospitalQmojaqwngd12-34-0246 09:08-6979VoU8% (BldA) [Mass fraction]96 %Madeleine Castillo POLICY ADVISER Work Phone: [facility] HospitalCmttklplfh46-69-0367 09:08-0400Systolic blood arlagvke614 mm[Hg]Madeleine Wallacejanny POLICY ADVISER Work Phone: [facility] HospitalZcbmrouygh29-82-1079 08:53-0500Body voafuj416.7 cmBrjourdan Oviedo POLICY ADVISER Work Phone: [facility] HospitalUfnyeaqwsf20-77-3837 08:53-0500Body mass index (BMI) [Ratio]44.25 kg/i9Pkjoblyl Oviedo POLICY ADVISER Work Phone: [facility] HospitalLfomalcwsx91-17-5368 08:53-0500Body temperature 97.2 [degF]Lucille Oviedo POLICY ADVISER Work Phone: noS[facility] HospitalHewxoezkel35-11-5867 08:53-0500Body kg Lucille Blackwellk POLICY ADVISER Work Phone: noS[facility]te [facility]ev[facility] HospitalKylnrnrgfn73-34-5794 08:53-0500Diastolic blood mm[Hg]Lucille Neumanntrick POLICY ADVISER Work Phone: noS[facility] HospitalQgcndwcmlb83-31-4921 08:53-0500Heart rate75 /min Lucille Blackwellk POLICY ADVISER Work Phone: noS[facility] HospitalVekakrpdjz02-50-2380 08:53-0500Respiratory rate16 /minLucille Blackwellk POLICY ADVISER Work Phone: noS[facility] Genev[facility] Memorial HospitalFhimcqourk53-48-9068 08:53-3471LsN3% (BldA) [Mass fraction]97 %Lucille Blackwellk POLICY ADVISER Work Phone: noSainte Genevieve [facility] Memorial HospitalBcufbzpbwd91-81-4149 08:53-0500Systolic blood gkzkgpdo829 mm[Hg]Lucille Blackwellk POLICY ADVISER Work Phone: [facility] Encounters Encounter DateEncounter TypeCare ProviderFacilityStart: 03-05-2025 End: 05-61-8535teucssskqzCwwn Wiliam JUNG Work Phone: [facility] Work Phone: Start: 03-05-2025 End: 66-54-9752Qeahjsif ReferredLisa Sigrid Castillo NP-C-LAB [facility] Start: 56-05-0452Uai-patient / Non-visitMadeleine Castillo POLICY ADVISER-[facility] Work Phone: Start: 02-05-2025 End: 17-68-4058Nrrpswnwb Result EncounterLisa Anna POLICY ADVISER Work Phone: [facility] External Department UnsolicitedStart: 02-05-2025 End: 72-13-6108Hbtcnwjlz Result EncounterLisa Nikolayz POLICY ADVISER Work Phone: [facility] External Department UnsolicitedStart: 02-05-2025 End: 43-63-4262Efrvbj OnlyMadeleine Castillo POLICY ADVISER Work Phone: [facility] CWM FMComment on above:Other specified hypothyroidism (Primary Dx); Asymptomatic microscopic hematuriaStart: 02-04-2025 End: 86-50-7268Fdasci flowsheetMadeleine Wallacejanny POLICY ADVISER Work Phone: [facility] CWM FMStart: 02-04-2025 End: 63-20-2016Lvuzyq flowsheetMadeleine Wallacez POLICY ADVISER Work Phone: [facility] CWM FMStart: 02-04-2025 End: 11-14-6411Owujexu encounter procedureMadeleine Castillo POLICY ADVISER Work Phone: [facility] CWM FMComment on above:Medicare annual wellness visit, subsequent (Primary Dx); Primary hypertension ; Morbid obesity ([facility]); Other specified hypothyroidism ; Pre-diabetes; Body mass index (BMI) 40.0-44.9, adult ([facility]); Breast cancer screening declinedStart: 02-04-2025 End: 05-10-1257bsmiekkgaoIYPO AICHHOLZNot AvailableStart: 08-11-2024 End: 73-73-6656Ffipvl outpatient new 30 minutesSaint [facility] PA Work Phone: [facility] SWS DERMComment on above:Capillary angioma (Primary Dx); Seborrheic keratosis; Lentigo simplex; Melanocytic nevus of trunk; Epidermal inclusion cyst; MiliaStart: 08-11-2024 End: 12-76-6115mczfcqwdlgCQDBX NORTHEIMNot AvailableStart: 08-11-2024 End: 03-93-5097Bozcai [facility] PA Work Phone: [facility] SWS DERMStart: 08-11-2024 End: 41-88-3080Umvkbu [facility] PA Work Phone: [facility] SWS DERMStart: 08-06-2024 End: 30-17-0952Cyolkn flowsheetLucille Oviedo POLICY ADVISER Work Phone: [facility] CWM FMStart: 08-06-2024 End: 30-11-2240Tqdbdj flowsheetLucille Oviedo POLICY ADVISER Work Phone: [facility] CWM FMStart: 08-06-2024 End: 93-19-9381Yhbcth outpatient visit 15 minutesLucille Oviedo POLICY ADVISER Work Phone: [facility] CWM FMComment on above:Primary hypertension (CMS/HCC) (Primary Dx); Neoplasm of uncertain behavior of breast, rightStart: 08-06-2024 End: 04-83-8974tdasxmgcdgSEQIDBXJ FITTONATRICKNot AvailableStart: 12-23-2023 End: 07-05-8478lqhhdklqcvRkmotol Vytautas Giedraitis MDFacility:[facility] Start: 12-09-2023 End: 85-36-6487jgcdyixjyuJaooygf Vytautas Giedraitis MDFacility:[facility] Start: 11-11-2023 End: 78-29-2189ivgaeypxdxBrxxass Vytautas Giedraitis MDFacility:[facility] Start: 42-78-8726Hwpmmij encounter procedureLucille Oviedo POLICY ADVISER Work Phone: [facility] HealthcareStart: 11-09-2022 End: 65-33-1934hshnaeudlxSO DAVID A NADERERFacility:H1 Procedures DateProcedureProcedure DetailPerforming ClinicianStart: 49-87-5518VLC CBC WITH AUTO DIFFLisa Anna POLICY ADVISER Work Phone: Start: 20-24-6596Cohxir cancer screening declined Breast cancer screening declinedLisa Anna POLICY ADVISER Work Phone: Start: 32-56-3906WyjgzkquvrzRsoh Anna POLICY ADVISER Work Phone: Start: 73-17-7005EbtkvzqyvzxCcscwtoh Fitzpatrick NP Work Phone: Plan of Treatment DateCare ActivityDetailAuthorStart: 87-90-1183Yuqnrfnns for malignant neoplasm of colonNOMS HealthcareStart: 02-08-2026 End: 33-51-8108Miikxst encounter gsyqbgfqs16/11/2026 10:00 AM EDT Office Visit [facility] [address] [place] [address] Madeleine Castillo NP [address] [place] [address] [facility] NUPUR FMStart: 08-07-2026Medicare Annual Wellness (AWV) Medicare Annual Wellness (AWV)[facility] HealthcareStart: 48-34-4000Mswqdhqccmtn Vaccine: 65+ Years (1 of 1 - PCV)Pneumococcal Vaccine: 65+ Years (1 of 1 - PCV) [facility] HealthcareComment on above:Postponed from 10/28/2005 (Patient Refused) Start: 30-56-7748Wyeouugev for malignant neoplasm of breastMammogramNOMS HealthcareStart: 08-09-2025 End: 62-18-7153Qiqfsme encounter qhhswaiun27/09/2026 9:00 AM EST [facility] [address] [place] [address] Madeleine Castillo, TODD [address] [place] [address] [facility] FMStart: 03-08-2025 End: 82-90-6256Zlmotybj identified in Urine by CultureUrine culture (clean catch) Microbiology Routine Asymptomatic microscopic hematuria Expected: 2024 (Approximate), Expires: 02/05/2026[facility] HealthcareComment on above:Expected: 03/08/2025 (Approximate), Expires: 02/05/2026Start: 03-08-2025 End: 84-02-9216Pgoewbwbefb [Units/volume] in Serum or PlasmaTSH Lab Routine Other specified hypothyroidism Expected: 03/08/2025 (Approximate), Expires: 02/05/2026[facility] HealthcareComment on above:Expected: 03/08/2025 (Approximate), Expires: 02/05/2026Start: 03-08-2025 End: 53-52-4215Itgquqhod (T4) free [Mass/volume] in Serum or PlasmaT4, free Lab Routine Other specified hypothyroidism Expected: 03/08/2025 (Approximate), Expires: 02/05/2026[facility] HealthcareComment on above:Expected: 03/08/2025 (Approximate), Expires: 02/05/2026Start: 03-08-2025 End: 84-94-2785Mwodbzduaxqqlzhx (T3) Free [Mass/volume] in Serum or PlasmaT3, free Lab Routine Other specified hypothyroidism Expected: 03/08/2025 (Approximate), Expires: 02/05/2026[facility] HealthcareComment on above:Expected: 03/08/2025 (Approximate), Expires: 02/05/2026Start: 03-08-2025 End: 58-77-0827Rimdytucmb complete panel - UrineUrinalysis with reflex microscopic (clean catch) Lab Routine Asymptomatic microscopic hematuria Expe cted: 03/08/2025 (Approximate), Expires: 02/05/2026[facility] Healthcare Work Phone: Comment on above:Expected: 03/08/2025 (Approximate), Expires: 02/05/2026Start: 27-45-6962Vckkizrg identified in Urine by CultureUrine The Christ Hospitaltart: 52-30-6027[facility] Hospitaltart: 80-44-9819Lrndxwfgg vaccinationInfluenza Vaccine (#1)[facility] HealthcareStart: 02-04-2025 End: 36-83-9942IAA W Auto Differential panel - BloodCBC and differential Lab Routine Primary hypertension Other specified hypothyroidism Pre-diabetes Ex pected: 02/04/2025 (Approximate), Expires: 02/04/2026[facility] Healthcare Work Phone: Comment on above:Expected: 02/04/2025 (Approximate), Expires: 02/04/2026Start: 02-04-2025 End: 47-38-8069Oizoqhlcapyan metabolic 2000 panel - Serum or PlasmaComprehensive metabolic panel Lab Routine Primary hypertension Morbid obesity ([facility]) Pre-diabetes Expected: 02/04/2025 (Approximate), Expires: 02/04/2026[facility] HealthcareComment on above:Expected: 02/04/2025 (Approximate), Expires: 02/04/2026Start: 02-04-2025 End: 81-97-6386Jxnkzdukzl A1c/Hemoglobin.total in BloodHemoglobin A1c Lab Routine Pre-diabetes Expected: 02/04/2025 (Approximate), Expires: 02/04/2026[facility] HealthcareComment on above:Expected: 02/04/2025 (Approximate), Expires: 02/04/2026Start: 02-04-2025 End: 91-28-0208Ydkmw 1996 panel - Serum or PlasmaLipid panel Lab Routine Other specified hypothyroidism Pre-diabetes Expected: 02/04/2025 (Approximate), Expires: 02/04/2026[facility] HealthcareComment on above:Expected: 02/04/2025 (Approximate), Expires: 02/04/2026Start: 02-04-2025 End: 67-22-3306Kqqexwyutmmn/Creatinine panel in random UrineMicroalbumin / creatinine, urine ratio Lab Routine Primary hypertension Pre-diabetes Expected: 02/04/2025 (Approximate), Expires: 02/04/2026[facility] HealthcareComment on above: Expected: 02/04/2025 (Approximate), Expires: 02/04/2026Start: 02-04-2025 End: 79-64-3743Lpkcchhomnw [Units/volume] in Serum or PlasmaTSH Lab Routine Other specified hypothyroidism Expected: 02/04/2025 (Approximate), Expires: 02/04/2026[facility] HealthcareComment on above:Expected: 02/04/2025 (Approximate), Expires: 02/04/2026Start: 02-04-2025 End: 61-09-2127Fvighxfgad complete panel - UrineUrinalysis with reflex microscopic (clean catch) Lab Routine Primary hypertension Pre-diabetes Expec clarisa: 02/04/2025 (Approximate), Expires: 02/04/2026[facility] HealthcareComment on above:Expected: 02/04/2025 (Approximate), Expires: 02/04/2026Start: 02-04-2025 End: 00-09-2687Belgmgm encounter procedureNOMS CWM FMComment on above:Primary hypertension (Primary Dx); Morbid [place] Other specified hypothyroidism ; Medicare annual wellness visit, subsequent; Pre-diabetes; Body mass index (BMI) 40.0-44.9, adult ([facility])Start: 05-06-2025Medicare Annual Wellness (AWV)Medicare Annual Wellness (AWV)[facility] HealthcareStart: 10-01-2024 Influenza vaccinationInfluenza Vaccine (#1)[facility] HealthcareComment on above: Postponed from 03/01/2024 (Patient Refused)Start: 25-63-1147Nfkenecnzcce Vaccine: 65+ Years (1 of 1 - PCV)Pneumococcal Vaccine: 65+ Years (1 of 1 - PCV) [facility] HealthcareComment on above:Postponed from 10/28/2020 (Patient Refused) Start: 29-52-1605Mmshverue for malignant neoplasm of breastMammogramNOMS HealthcareComment on above:Postponed from 1995 (Patient Refused)Start: 08-11-2024 End: 20-30-0363Mqcnjiv encounter rjeolfufw20/11/2025 2:30 PM EST Office Visit [facility] [address] [place] [address] Desi Chamberlain PA [address] [place] [address] Neoplasm of uncertain behavior of breast, rightNOMS SWS DERMComment on above:Neoplasm of uncertain behavior of breast, rightStart: 08-06-2024 End: 79-66-8368Ehlopno encounter welkwuako41/06/2025 9:00 AM EST Office Visit [facility] FM [address] [place] [address] Lucille Oviedo NP [address] [facility] [place] [address] Dudley Zeinab FMComment on above:ArrivedStart: 03-01-2024 Influenza vaccinationInfluenza Vaccine (#1)NOM HealthcareStart: 10-28-2005 Pneumococcal Vaccine: 65+ Years (1 of 1 - PCV)Pneumococcal Vaccine: 65+ Years (1 of 1 - PCV)[facility] HealthcareStart: 78-60-9110Feystzime for malignant neoplasm of breastMammogramNOMS HealthcareStart: 38-98-6345Ducwphwcy for malignant neoplasm of colonNOMS Healthcare Payers DatePayer CategoryPayerPolicy [id number]-pay2024Medicare (Managed Care)[facility] [id number] 2024Medicare2024 [id number] [id number] [id number] 2..[id number] 2..[id number] 2..[id number] 2..[id number] 2..[id number] [id number] [id number] Social History DateTypeDetailFacilityStart: 09-06-2023 End: 20-41-3390Xrbeqit smoking status NHISEx-smokerNOMS HealthcareHistory of tobacco useCurrent smokerNOMS HealthcareHistory of tobacco useCigarette Smoker [facility] HealthcareHistory of tobacco usePassive smokerNOMS HealthcareStart: 76-04-7749Cylesqs use and exposureSmokeless tobacco non-userNOMS Healthcare Start: 02-04-2024 End: 02-74-1575Vzabsfgji beverage intakeCurrent drinker of alcohol (finding)[facility] HealthcareStart: 02-04-2024 End: 42-54-1688Qieokeg of Social functionNOMS HealthcareStart: 02-04-2024 End: 69-45-5683Vfqspdw use panelNOMS HealthcareStart: 75-44-8290Zplrqtx Comment OCCASSIONALNOMS HealthcareStart: 55-17-3922Ruj assigned at birthNot on fileNOFL HealthcareSexFemale (finding)[facility] Hospitaltart: 1955 [facility]FeC[facility] Functional Status OuifYagxhmnokoQrqyqkTnngapbx27-11-1529Emcgbhh Health Questionnaire 2 item (PHQ- 2) [Reported][facility] Healthcare Clinical Notes 08-06-2024 to 02-04-2025 Note Date & PaxgJdasUrktwzze98-57-2762 History of Present illness Narrative* TEJ MANN - 02/04/2025 9:00 AM EDT Swelling in both legs-every summer * Madeleine Castillo NP - 02/04/2025 9:00 AM EDT Images from the original note were not [...] MEDICAL HISTORY Past Medical History: Diagnosis Date Shingles Past Surgical History: Procedure Laterality Date TOTAL [...] Microalbumin / creatinine, urine ratio Morbid obesity [place] Discussed with patient their BMI (actual, verses [...] A1c Body mass index (BMI) 40.0-44.9, adult ([facility]) Breast cancer screening declined * Madeleine Castillo NP - 02/04/2025 6:10 AM EDTAssociated Problem(s): Pre-diabetes A1c 5.8% 2023 * Madeleine Castillo NP - 02/04/2025 6:10 AM EDTAssociated Problem(s): Medicare annual wellness visit, subsequent Reviewed Ht/Wt/BMI Recommend eye exam yearly Recommend dental exams twice a year Balance work/leisure activities Exercises is recommended most days of the week (appropriate as chronic conditions allow) Follow up yearly and prn * Madeleine Castillo NP - 02/04/2025 6:09 AM EDTAssociated Problem(s): Other specified hypothyroidism No current medications for this * Madeleine Castillo NP - 02/04/2025 6:08 AM EDTAssociated Problem(s): Morbid obesity ([facility] Discussed with patient their BMI (actual, verses recommended). We have also discussed lifestyle modifications: attempts to perform physical activity as chronic conditions allow, also to monitor dietary intake: increasing protein/fruits/veggies and lowering carb intake (unless contraindicated). Limit sodas, juices, and sugary drinks. * Madeleine Castillo NP - 02/04/2025 6:08 AM EDTAssociated Problem(s): Primary hypertension Hx of this, no medications documented in this encounterProgress West HospitalMuxggeaxmm27-41-2732 History of Present illness Narrative* Desi ELVA Chamberlain - 08/11/2024 2:30 PM EST Skin Check Location: Patient requests a skin examination from the waist up Dermatologic history: no history of skin cancer, no history of atypical moles, no family history ofmelanoma Lesions: Location: Right breast Duration: Probably about a year Quality: Asymptomatic Modifying factors: None Associated symptoms: Brown/clark raised bumps Treatments: [place] oil, did shrink/soften lesions New patient, referred by Lucille Oviedo APRN POLICY ADVISER-C All pertinent medical history, medications, and allergies [...] benign pigmented lesions that occur on sun-exposed andsun-damaged skin. No treatment is necessary. Recommended regular [...] diagnose the lesion would be to have itremoved and tested. Discussed treatment options including observation vs. excision. Patient elected for observation. Notify office if lesion is enlarging or becomes symptomatic. 6. Milia Head - Anterior (Face) Small white or yellow papules. Reassure, benign. Discussed milia may self resolve or they can be removed for a cosmetic fee. 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 Clark in color. Raised. black spots in center. Abnormal shape and edges. Pencil eraser in size. Will send referral to dermatology for further evaluation and treatment. * Lucille Oviedo NP - 08/06/2024 9:15 AM ESTAssociated Problem(s): Primary hypertension (CMS/HCC) Currently not taking any medication BP in office 130/80. States BP Maximum at home is 140 SBP. States average is less than 130/90. Provided BP log- did not bring with her to visit. * Lucille Oviedo NP - 08/06/2024 9:00 AM EST Images from the original note were not [...] Neurological: Negative for dizziness, tremors, syncope, weakness, light- headedness and headaches. Psychiatric/Behavioral: Negative for decreased concentration and suicidal ideas. The patient is notnervous/anxious. Hematological: Does not bruise/bleed easily. Endocrine: Negative [...] List Items Addressed This Visit Primary hypertension (CMS/HCC) - Primary Currently not taking any medication [...] further evaluation and treatment. documented in this encounterProgress West HospitalXhdovopugn01-48-3843 Instructions* Patient Instructions* Lucille Oviedo NP - 08/06/2024 9:00 AM EST Referral sent to Dermatology they will call you. If you don't hear from them in 2 weeks, call my office! documented in this encounterNOFL HealthcareEvaluation note* Diagnosis Post herpetic neuralgia (CMS/HCC)- Primary Herpes [...] breast, right documented in this encounter [facility] HealthcareEvaluation note* Diagnosis Post herpetic neuralgia (CMS/HCC)- Primary Herpes [...] with other nervous system complications Primary hypertension ([facility])- Primary Unspecified essential hypertension Neoplasm of uncertain behavior of breast, right Capillary angioma- Primary Nevus, non-neoplastic Seborrheic keratosis Lentigo simplex Other dyschromia Melanocytic nevus of trunk Benign neoplasm of skin of trunk, except scrotum Epidermal inclusion cyst Sebaceous cyst Milia Sebaceous cyst documented in this encounter [facility] HealthcareEvaluation note* Diagnosis Post herpetic neuralgia- Primary Herpes zoster [...] Primary hypertension Unspecified essential hypertension Morbid obesity ([facility]) Morbid obesity Other specified hypothyroidism Pre-diabetes Other abnormal glucose Body mass index (BMI) 40.0-44.9, adult ([facility] Breast cancer screening declined documented in this encounter [facility] HealthcareEvaluation note* Diagnosis Post herpetic neuralgia- Primary Herpes zoster [...] Primary hypertension Unspecified essential hypertension Morbid obesity ([facility]) Morbid obesity Other specified hypothyroidism Pre-diabetes Other abnormal glucose Body mass index (BMI) 40.0-44.9, adult ([facility] Breast cancer screening declined Other specified hypothyroidism- Primary Asymptomatic microscopic hematuria documented in this encounter [facility] HealthcareEvaluation noteNo assessment information availableFirTogus VA Medical Center [facility]tr Work Phone: Reason for referral (narrative)No reason for referral information availableAdena [facility] Work Phone: Reason for visit Narrative* Consultation (Routine) - ClosedSpecialtyDiagnoses / ProceduresReferred By ContactReferred To Contact Dermatology Diagnoses Neoplasm of uncertain behavior of breast, right Procedures RI OFFICE/OUTPATIENT NEW HIGH MDM 60 MINUTES Lucille Oviedo NP [address] [place] [address] Phone: tel: fax: Mirta Guerra MD [address] [place] [address] Phone: tel: fax: Referral IDStatusReasonStart DateExpiration DateVisits RequestedVisits [id number] Specialty Services Required / [facility] Summary Purpose Family History No Family History Records Found Relationship Condition Age at Onset Recorded Date/T amie mother Dementia Unknown Advance Directives No Advanced Directives Records Found Advance Directive Response Recorded Date/ Time Advance Directives No September 05 10:04am Additional Source Comments INFORMATION SOURCE (unrecogn ized section and content) DATE CREATED AUTHOR 11/12/2022 [facility] DATE CREATED AUTHOR AUTHOR'S ORGANIZ ATION 12/25/2023 [facility] DATE CREATED AUTHOR AUTHOR'S ORGANIZ ATION 02/06/2025 [facility] DATE CREATED AUTHOR AUTHOR'S ORGANIZ ATION 03/08/2025 [facility] Care Teams (unrecognized sec tion and content) Team MemberRelationshipSpecialtyStart DateEnd Date David Abbott MD [address] [place] [address] PCP - [facility]07/01/23 David Abbott MD [address] [place] [address] PCP - GeneralFamily Medicine01/29/24 Lucille Oviedo NP [address] [place] [address] [facility]01/29/24Team MemberRelationshipSpecialtyStart DateEnd Date David Abbott MD [address] [place] [address] PCP - [facility]07/01/23 David Abbott MD [address] [place] [address] PCP - [facility]01/29/24 Lucille Oviedo NP [address] [place] [address] Nurse Pract[facility]erN[facility]01/29/24Team MemberRelationshipSpecialtyStart DateEnd Date David Abbott MD [address] [place] [address] PCP - [facility]07/01/23 David Abbott MD [address] [place] [address] P[facility] - [facility]01/29/24 Lucille Oviedo NP [address] [place] [address] Nurse Pract[facility]erN[facility]01/29/24Team MemberRelationshipSpecialtyStart DateEnd Date David Abbott MD [address] [place] [address] PCP - [facility]07/01/23 David Abbott MD [address] [place] [address] P[facility] - [facility]01/29/24 Lucille Oviedo NP [address] [place] [address] Nurse PractitionerN[facility]01/29/24Team MemberRelationshipSpecialtyStart DateEnd Date David Abbott MD [address] [place] [address] PCP - [facility]07/01/23 David Abbott MD [address] [place] [address] P[facility] - [facility]01/29/24 Lucille Oviedo NP [address] [place] [address] Nurse PractitionerN[facility]01/29/24Team MemberRelationshipSpecialtyStart DateEnd Date David Abbott MD [address] [place] [address] PCP - [facility]07/01/23 David Abbott MD [address] [place] [address] PCP - [facility]01/29/24 Lucille Oviedo NP [address] [place] [address] Nurse PractitionerAust[facility]01/29/24Team MemberRelationshipSpecialtyStart DateEnd Date David Abbott MD [address] [place] [address] PCP - [facility]07/01/23 David Abbott MD [address] [place] [address] PCP - GeneralN[facility]01/29/24 Lucille Oviedo NP [address] [place] [address] Nurse PractitionerN[facility]01/29/24Team MemberRelationshipSpecialtyStart DateEnd Date David Abbott MD [address] [place] [address] PCP - [facility]07/01/23 David Abbott MD [address] [place] [address] PCP - GeneralN[facility]01/29/24 Lucille Oviedo NP [address] [place] [address] Nurse PractitionerN[facility]01/29/24 Team Status: Active Member Role Status Dates David Abbott MD Primary Care Provider Active S tart: March 05, 2025 Madeleine Liuending ProviderActiveStart: March 05, 2025 Team Status: Inactive Member Role Status Dates Madeleine Castillo Attending Provider Active Start: March 05, 2025 End: March 05, 2025 Reason for Visit (unrecogniz ed section and content) ReasonCommentsFollow-upReasonCommentsMedicare Annual Wellness Visit Initial Goals (unrecognized section and content) Goals may be documented in a n alternate section FOR RECORDS PERTAINING TO PATIENTS WHO ARE [...] BE BASED ON THE PRIMARY CLINICAL RECORDS. [facility]. provides no warranty or guarantee of the accuracy or completeness of information in this document.
--- OUTSIDE RECORDS SUMMARY | 2025-06-29 11:25 | XMS_ITS | Clinical Summary ---
Author Organization [facility] Address [id number] [address] [place] [address] Care Team Providers Care Dock Associate Name Role Phone Unavailable Primary Care Provider Unavailabl e Social History Tobacco UseTypesPacks/DayYears UsedDateSmoking Tobacco: Never AssessedChildcare AnswerDate TyhvnuhfCflbmxofbIiwtqpp41/12/2019EmploymentAnswerDate Recorded QrlnjvictbGheabqj22/12/2019CommentsUnknownSex and Gender Information ValueDate RecordedSex Assigned at BirthNot on fileLegal CsbEryzlv03/06/2015 11:39 AM EDTGender IdentityNot on fileSexual OrientationNot on file Plan of Treatment Not on file Medical Devices Not on file
--- OUTSIDE RECORDS SUMMARY | 2025-06-29 11:25 | XMS_ITS | Clinical Summary ---
Author Organization [facility] Address [address] [place] [address] Care Team Providers Care Senior Infrastructure Architect Name Role Phone David Swain MD Unavailable Lucille Oviedo NP Unavailable [phone] David Swain MD Primary Care Provider [phone] Allergies Active AllergyReactionsCriticalityNoted DateCommentsValdecoxibAnxietyLow 02/04/2025 Medications No known medications Active Problems ProblemNoted DateDiagnosed DateAsymptomatic microscopic gaqokfscu50/08/2025 Pre-mplaqwab77/07/2025 Assessment & Plan (02/04/2025 6:10 AM EDT): [...] evaluation and treatment. Medicare annual wellness visit, zjqoeotcjx66/06/2024 Assessment & Plan (02/04/2025 6:10 AM EDT): [...] questions and concerns addressed and answered. Primary cgyguubzrcxz94/02/2024 Assessment & Plan (02/04/2025 6:08 AM EDT): [...] and follow up as clinically indicated. Morbid drxxrrs6110/01/2023 Assessment & Plan (02/04/2025 6:08 AM EDT): Discussed with patient their BMI (actual, verses recommended). We have also discussed lifestyle modifications: attempts to perform physical activity as chronic conditions allow, also to monitor dietary intake: increasing protein/fruits/veggies and lowering carb intake (unless contraindicated). Limit sodas, juices, and sugary drinks. Other specified eworefzwcjquoc41/02/2024 Assessment & Plan (02/04/2025 6:09 AM EDT): No current medications for this Assessment & Plan (02/04/2024 9:53 AM EDT): Currently not on any medication Last TSH WNL Assessment & Plan (10/02/2023 5:18 PM EDT): Used to be on synthyroid. Not using it anymore. Check TSH/T4 Post herpetic tglvinqwr94/02/2024 Assessment & Plan (02/04/2024 9:55 AM EDT): [...] EDT): Screen for HLD. Screening for diabetes cykxhfsw24 Assessment & Plan (10/02/2023 5:17 PM EDT): Screen for T2 DM . Family History RelationNameStatusCommentsFatherDeceasedMotherAlive Social History Tobacco UseTypesPacks/DayYears UsedDateSmoking Tobacco: FormerCigarettesPassive Smoke Exposure: PastSmokeless Tobacco: Never Tobacco Cessation:Counseling Given: Not Answered Alcohol UseStandard Drinks/WeekCommentsYes0 (1 standard drink = 0.6 oz pure alcohol)OCCASSIONALPHQ-2AnswerDate RecordedPatient Health Questionnaire-2 Score0 02/04/2025CommentsUnknownSex and Gender InformationValueDate RecordedSex Assigned at BirthNot on fileLegal YjsCgfmlk09/15/2023 7:25 PM EDTGender Identity Not on fileSexual OrientationNot on file Last Filed Vital Signs Vital SignReadingTime TakenCommentsBlood Occhlhua054/80002/04/2025 9:08 AM EDT Xdygc4985/07/2025 9:08 AM CDESovktymmqft00.9 ??C (98.5 ??F)02/04/2025 9:08 AM EDTRespiratory Pxxm587502/04/2025 9:08 AM EDTOxygen Zukmpyeywm11%02/04/2025 9:08 AM EDTInhaled Oxygen Concentration--Gozzim183 kg (295 lb 12.8 oz)02/04/2025 9:08 AM HFIEeehid938.7 cm (5' 8 )08/06/2024 8:53 AM ESTBody Mass Index44.98008/06/2024 8:53 AM EST Plan of Treatment Health MaintenanceDue DateLast DoneCommentsCT Pelyeqbvjbec94/30/1956FIT-DNA 1955FIT1955FOBT1955 9944Osxohcewfrxim42/30/1956Influenza Vaccine (#1)03/01/20250418Hbyvwtrnb10 (Patient Refused)Medicare Annual Wellness (AWV), 11/04/2023, 11/04/2023neumococcal Vaccine: 65+ Years (1 of 1 - PCV)02/04/2026Postponed from 10/28/2005 (Patient Refused) Dfqrhqmandp43/01/202901/07/2018Colorectal Cancer Vzjruvdvc69/01/2029 Insurance Care Teams Team MemberRelationshipSpecialtyStart DateEnd Date David Swain MD [address] [facility] [place] [address] PCP - [facility]07/01/23 David Swain MD PCP - GeneralFamily Medicine01/29/24 Lucille Oviedo NP Nurse PractitionerFamily Medicine01/29/24
[2025-06-29 11:41] LABS: Anion Gap 11.6; Blood Urea Nitrogen 12.0 mg/dL (7.0-18.0); Calcium 9.0 mg/dL (8.5-10.1); Carbon Dioxide 30.1 mmol/L (21.0-32.0); Chloride 105 mmol/L (98-107); Estimated GFR (African America >60 (>=60 mL/min/1.73m^2); Estimated GFR (Non-African Ame >60 (>=60 mL/min/1.73m^2); Glucose 102 mg/dL (74-106); Potassium 3.7 mmol/L (3.5-5.1); Sodium 143 mmol/L (136-145)
--- NOTE | 2025-06-29 12:40 | CT_ITS ---
The [address] [address] Patient Name: FOSTER MCNEILL MRN: [id number] date: 1955 Sex: F Assigned Patient Location: LAB Current Patient Location: LAB Accession/Order Number: [id number] Exam Date: 06/29/2025 12:28 Report Date: 06/29/2025 17:27 At the request of: ELISE LOPEZ NP Procedure: CT abdomen pelvis wo/w con CT ABDOMEN AND PELVIS WITHOUT AND WITH INTRAVENOUS CONTRAST CLINICAL DATA: Asymptomatic microscopic hematuria. COMPARISON: None Spiral images were obtained through the abdomen and pelvis before and after intravenous administration of 100 mL of Omnipaque 300. Patient also received oral contrast. This CT exam was performed using one or more following dose reduction techniques: Automated exposure control, adjustment of the mA and/or kV according to patient size, or use of iterative reconstruction technique. Limited cuts through the lung bases show a small hiatal hernia. There is linear atelectasis and/or scarring. The kidneys are within normal limits for size, position and contour. No renal, ureteral or bladder calculi are identified. Following contrast administration, the renal nephrograms are symmetric. There are tiny renal cysts. No hydronephrosis is seen. No ureteral dilatation is noted. The urinary bladder shows no abnormalities for the degree of distention. There is cholelithiasis, without complication. Fatty infiltration of the liver is seen. There are tiny hepatic hypodensities which are too small to fully characterize though may be cysts. The spleen, pancreas and adrenal glands show no acute findings. There is mild plaque at the aorta and iliac arteries. There are tiny abdominal lymph nodes. No ascites is present. The small bowel loops are not distended. Stool is seen within the colon, greater on the right. There is subtle dextroscoliotic curvature and mild degenerative changes at the spine. Images through the pelvis show no appendiceal inflammation. There is no dilated small bowel. The distal colon is not well distended. No diverticular disease is seen. The uterus shows slight dextroversion. There are no adnexal cysts. There are a couple large calcifications projecting between the uterus and bladder. There is no ascites. CT/CT abdomen pelvis wo/w con IMPRESSION: HIATAL HERNIA. CHOLELITHIASIS. FATTY LIVER. TINY HEPATIC AND RENAL CYSTS. NO OBSTRUCTIVE UROPATHY OR STONE DISEASE. NO ACUTE FINDINGS. Impression dictated by: Flora Giraldo M.D. 06/29/2025 5:27 PM Dictation Location: [place] [address] Electronically authenticated by: [id number] Y Date: 06/29/2025 17:27
== END 2025-06-29 11:23 | disposition home or self-care (01) ==
LOC: LAB 11:22
PROVIDERS: PCP Nurse Practitioner; Visit Provider Nurse Practitioner
DX: R31.21 Asymptomatic microscopic hematuria (principal)
CPT/HCPCS: 36415; 74178; 80048; Q9967